=== PATIENT | male | born 1945 | race Caucasian/White ===

== ENCOUNTER → 2018-09-17 12:02 | Outpatient (CLI) | payer OTHER, SELFPAY ==
[2018-09-17 12:55] LABS: BUN Creatinine Ratio 28.6 (6-22); Blood Urea Nitrogen 60 mg/dL (9-20); Calcium 9.2 mg/dL (8.4-10.2); Carbon Dioxide 33 mmol/L (22-32); Chloride 100 mmol/L (98-107); Glucose 95 mg/dL (80-110); HEMOLYSIS < 15 (0-50); Potassium 3.7 mmol/L (3.4-5.1); Sodium 140 mmol/L (137-145)
[2018-09-17 13:10] LABS: Free T4, Direct Thyroxine 2.86 ng/dL (0.78-2.19)
[2018-09-17 13:24] LABS: Thyroid Stimulating Hormone < 0.02 uIU/mL (0.47-4.68)
== END ==
PROVIDERS: PCP Internal Medicine; Visit Provider Internal Medicine
DX: E03.9 Hypothyroidism, unspecified (principal); I10 Essential (primary) hypertension; I48.91 Unspecified atrial fibrillation; N18.4 Chronic kidney disease, stage 4 (severe)
CPT/HCPCS: 36415; 80048; 84439; 84443

== ENCOUNTER → 2018-10-08 09:04 | Outpatient (CLI) | payer OTHER, SELFPAY ==
--- NOTE | 2018-10-08 09:07 | DI.US.S_ITS ---
PROCEDURE: US RETRO PERITONEAL LIMITED INDICATIONS: AAA TECHNIQUE: Real time scanning was performed of the aorta and iliac arteries, with image documentation. COMPARISON: None. FINDINGS: Aorta: Proximal aortic diameter measures 2.9 cm. Mid-aorta measures 3.5 cm. Distal aortic diameter is 7.1 cm. the [id number] abdominal aortic aneurysm has significantly enlarged from the comparison study in November of 2015. Iliac arteries: Right common iliac artery measures 1.4 cm. Left common iliac artery measures 1.3 cm. IMPRESSION: Appreciable interval enlargement of the previously present aneurysm at the middle third and distal third of the aorta. The enlargement is significant, with the distal aorta showing the largest change from 4.5 cm previously to 7.1 cm in maximal axial dimension currently. The middle third of the abdominal aorta currently measures 3.5 cm in maximal axial dimension and in November of 2015 had measured 2.7 cm. Given the current diameter of the distal aorta at 7.1 cm consultation for consideration of intervention is recommended. Dictated by: Nate Roth M.D. on 10/08/2018 at 10:33 Approved by: Nate Roth M.D. on 10/08/2018 at 10:38
== END ==
PROVIDERS: PCP Internal Medicine; Visit Provider Internal Medicine
DX: I71.4 Abdominal aortic aneurysm, without rupture (principal)
CPT/HCPCS: 76775

== ENCOUNTER → 2018-10-23 11:14 | Outpatient (CLI) | payer OTHER, SELFPAY ==
[2018-10-23 12:54] LABS: Albumin 3.6 g/dL (3.5-5.0); BUN Creatinine Ratio 26.2 (6-22); Blood Urea Nitrogen 55 mg/dL (9-20); Calcium 9.1 mg/dL (8.4-10.2); Carbon Dioxide 35 mmol/L (22-32); Chloride 98 mmol/L (98-107); Glucose 137 mg/dL (80-110); HEMOLYSIS < 15 (0-50); Phosphorous 3.4 mg/dL (2.3-3.7); Potassium 3.3 mmol/L (3.4-5.1); Sodium 139 mmol/L (137-145)
== END ==
PROVIDERS: PCP Internal Medicine; Visit Provider Surgery Vascular Surgery
DX: I71.4 Abdominal aortic aneurysm, without rupture (principal)
CPT/HCPCS: 36415; 80069

== ENCOUNTER → 2018-10-29 15:58 | Outpatient (CLI) | payer OTHER, SELFPAY ==
--- NOTE | 2018-10-29 16:01 | DI.ECHO.S_ITS ---
[facility]---------+ [facility] +---------+ : : [address] : : : : [place] : : : : [id number] : : : : Phone: [phone]+ Echocardiogram Report + + :Name: NANCY NICHOLAS Study Date: 10/29/2018 Height: 69 in : :[facility] Exam Location: [facility] Weight: 121 lb : : Gender: Male BSA: 1.7 m2 : :: 1945 Age: 72 yrs BP: 110/80 mmHg: :Reason For Study: Cardiomyopathy : :Ordering Physician: Dr. Grider : :Lester Performed By: Love Page : + + Interpretation Summary The left ventricle is severely dilated. The ejection fraction is estimated to be 10-15%. There is severe global hypokinesis of the left ventricle. The basal inferior and inferolateral yi are thin and akinetic, consistent with prior infarct. The contractility is best in the apex, anteroseptal and anterior apical wall. The right ventricle is mild to moderately dilated. Right ventricular systolic function is moderate to severely reduced. Both atria are severely dilated. A patent foramen ovale is suspected. -Overall this echo shows evidence of significant biventricular dysfunction. The regional wall abnormalities of the left ventricle are concerning for multivessel coronary disease. -Patient was in atrial fibrillation during the study, with heart rate ranging from 65-92 bpm and up to 2 second pauses were noted on the study. -No prior echo in our system for comparison. Procedure: A two-dimensional transthoracic echocardiogram with color flow and Doppler was performed. The study quality was technically good. There is no prior echocardiogram noted for this patient. The patient was in atrial fibrillation with heart rates between 65-92 bpm during the exam. Left Ventricle: The left ventricle is severely dilated. There is normal left ventricular wall thickness. There is no thrombus. The ejection fraction is estimated to be 10-15%. There is severe global hypokinesis of the left ventricle. The basal inferior and inferolateral yi are thin and akinetic, consistent with prior infarct. Diastolic function could not be accurately assessed due to atrial fibrillation. Right Ventricle: The right ventricle is mild to moderately dilated. Right ventricular systolic function is moderate to severely reduced. Atria: Both atria are severely dilated. A patent foramen ovale is suspected. Mitral Valve: The mitral valve is normal in structure and function. There is trace mitral regurgitation. Aortic Valve: The aortic valve is trileaflet. The aortic valve opens well. There is discrete nodular thickening of the non- coronary cusp. There is trace aortic regurgitation. Tricuspid Valve: The tricuspid valve is normal in structure and function. There is trace tricuspid regurgitation. The right ventricular systolic pressure is estimated to be at least 28 mmHg based on an estimated right atrial pressure of 8 mm Hg. Pulmonic Valve: The pulmonic valve is not well visualized. There is mild to moderate pulmonic regurgitation. Great Vessels: The aortic root is normal size. The ascending aorta is at the upper limits of normal in size. The pulmonary is not well visualized. The IVC is of normal diameter and collapses less than 50% with a sniff. This suggests a right atrial pressure of 8 mm Hg. Pericardium/ Pleura There is no pericardial effusion. There is no pleural effusion. MMode/2D Measurements & Calculations LVIDd: 5.7 cm LVOT diam: 2.0 cm LVIDs: 4.8 cm Ao root diam: 3.7 cm FS: 15.3 % asc Aorta Diam: 3.4 cm EPSS: 1.7 cm IVSd: 0.87 cm LVPWd: 0.66 cm LV lemus. diameter/BSA (cm/m^2): 3.4 LV sys. diameter/BSA (cm/m^2): 2.9 LA A2 area: 34.5 cm2 RA long axis: 6.2 cm LA A4 area: 30.7 cm2 RA area: 29.0 cm2 LA length (vol): 6.6 cm RA vol: 115.0 ml LA vol: 136.2 ml RA : 68.9 ml/m2 LA vol index: 81.6 ml/m2 IVC diam: 2.0 cm RVD1 (basal): 4.7 cm RVD2 (mid): 3.3 cm Doppler Measurements & Calculations Ao V2 max: 98.7 cm/sec LVOT Max Bairon: 64.7 cm/sec Ao V2 mean: 72.0 cm/sec LV V1 max P.7 mmHg Ao max P.9 mmHg LV V1 VTI: 9.7 cm Ao mean P.2 mmHg TAWANDA(I,D): 1.9 cm2 Ao V2 VTI: 16.5 cm TAWANDA(V,D): 2.1 cm2 sev ratio: 0.59 TAWANDA indexed to BSA (cm^2/m^2): 1.1 MV E max bairon: 47.3 cm/sec TR max bairon: 225.6 cm/sec MV P1/2t: 71.6 msec TR max P.4 mmHg PA V2 max: 54.1 cm/sec PA V2 mean: 39.0 cm/sec PA mean P.67 mmHg PA Accel Time: 0.11 sec MV P1/2t max bairon: 47.5 cm/sec SV(LVOT): 30.9 ml MVA(P1/2t): 3.1 cm2 Electronically signed by: Arben Monreal M.D. on Reading Physician:10/29/2018 05:56 PM
== END ==
PROVIDERS: PCP Internal Medicine; Visit Provider Internal Medicine
DX: I37.1 Nonrheumatic pulmonary valve insufficiency (principal); I42.9 Cardiomyopathy, unspecified
CPT/HCPCS: 93306

== ENCOUNTER → 2018-11-23 11:30 | Outpatient (CLI) | payer OTHER, SELFPAY ==
[2018-11-23 12:23] LABS: BUN Creatinine Ratio 21.6 (6-22); Blood Urea Nitrogen 54 mg/dL (9-20); Calcium 9.5 mg/dL (8.4-10.2); Carbon Dioxide 31 mmol/L (22-32); Chloride 103 mmol/L (98-107); Estimated Glomerular Filt Rate 25.4 mL/min (>60); Glucose 144 mg/dL (80-110); HEMOLYSIS < 15 (0-50); Potassium 3.9 mmol/L (3.4-5.1); Sodium 143 mmol/L (137-145)
[2018-11-23 12:38] LABS: Free T4, Direct Thyroxine 1.39 ng/dL (0.78-2.19)
[2018-11-23 12:52] LABS: Thyroid Stimulating Hormone 2.66 uIU/mL (0.47-4.68)
== END ==
PROVIDERS: Family Provider Internal Medicine; PCP Internal Medicine; Visit Provider Internal Medicine Cardiovascular Disease
DX: I48.20 Chronic atrial fibrillation, unspecified (principal); E03.9 Hypothyroidism, unspecified; I10 Essential (primary) hypertension
CPT/HCPCS: 36415; 80048; 84439; 84443

== ENCOUNTER → 2019-01-25 14:51 | Outpatient (CLI) | payer OTHER, SELFPAY ==
--- NOTE | 2019-01-25 14:52 | DI.RAD.S_ITS ---
PROCEDURE: XR CHEST 2V INDICATIONS: cough TECHNIQUE: 2 views of the chest were acquired. COMPARISON: None. FINDINGS: Surgical changes and devices: None. Lungs and pleura: Scattered subsegmental atelectasis and/or scarring. No focal consolidation. No pleural effusions or pneumothorax. Lungs appear hyperinflated Mediastinum: Mediastinal contours are normal. Heart size is normal. Bones and chest wall: No suspicious bony abnormalities. Soft tissues appear unremarkable. IMPRESSION: No acute disease. Hyperinflated lungs in keeping with chronic obstructive physiology. Dictated by: Sourav Ny M.D. on 01/25/2019 at 16:56 Approved by: Sourav Ny M.D. on 01/25/2019 at 16:57
[2019-01-25 15:15] LABS: Add Manual Diff / Slide Review NO; Basophils Absolute Auto 100 /uL (0-100); Basophils Percent Auto 1.3 % (0-2); Eosinophils Absolute Auto 200 /uL (0-450); Eosinophils Percent Auto 2.7 % (2-4); Hematocrit 40.6 % (41-53); Lymphocytes Absolute Auto 1500 /uL (1100-4500); Lymphocytes Percent Auto 24.2 % (25-40); Mean Corpuscular HGB Conc 34.5 % (30-36); Mean Corpuscular Hemoglobin 32.6 PG (26-34); Mean Corpuscular Volume 94.4 fL (80-100); Monocytes Absolute Auto 600 /uL (0-900); Monocytes Percent Auto 9.4 % (3-14); Neutrophils Absolute Auto 3900 /uL (1500-7000); Neutrophils Percent Auto 62.4 % (50-75); Platelet Count 151 X10^3/uL (150-400); Red Cell Distribution Width 14.8 % (11.6-14.8); White Blood Cell Count 6.2 X10^3/uL (4.5-11.0)
[2019-01-25 15:52] LABS: Alanine Aminotransferase 23 IU/L (<50); Albumin Globulin Ratio 1.3 (1.0-2.8); Alkaline Phosphatase 87 U/L (38-126); Aspartate Aminotransferase 31 IU/L (17-59); BUN Creatinine Ratio 22.9 (6-22); Bilirubin Total 0.7 mg/dL (0.2-1.3); Blood Urea Nitrogen 55 mg/dL (9-20); C-Reactive Protein Quant 0.6 mg/dL (<1.0); Calcium 9.6 mg/dL (8.4-10.2); Carbon Dioxide 33 mmol/L (22-32); Chloride 101 mmol/L (98-107); Estimated Glomerular Filt Rate 26.5 mL/min (>60); Globulin 3.2 g/dL (1.7-4.1); Glucose 103 mg/dL (80-110); HEMOLYSIS < 15 (0-50); Potassium 3.5 mmol/L (3.4-5.1); Sodium 142 mmol/L (137-145); Total Protein 7.2 g/dL (6.3-8.2)
[2019-01-25 16:06] LABS: Free T4, Direct Thyroxine 1.34 ng/dL (0.78-2.19)
== END ==
PROVIDERS: PCP Internal Medicine; Visit Provider Internal Medicine
DX: R05 Cough (principal); F32.9 Major depressive disorder, single episode, unspecified; I42.9 Cardiomyopathy, unspecified; I48.91 Unspecified atrial fibrillation; I69.30 Unspecified sequelae of cerebral infarction; N18.4 Chronic kidney disease, stage 4 (severe)
CPT/HCPCS: 36415; 71046; 80053; 84439; 84443; 85025; 86140

== ENCOUNTER → 2019-03-09 14:29 | Outpatient (CLI) | payer OTHER, SELFPAY ==
[2019-03-09 15:40] LABS: INR 1.7 (0.9-1.3); Prothrombin Time 20.2 SECONDS (10.1-12.7)
[2019-03-09 17:12] LABS: BUN Creatinine Ratio 22.2 (6-22); Blood Urea Nitrogen 51 mg/dL (9-20); Calcium 9.4 mg/dL (8.4-10.2); Carbon Dioxide 31 mmol/L (22-32); Chloride 99 mmol/L (98-107); Estimated Glomerular Filt Rate 27.9 mL/min (>60); Glucose 69 mg/dL (80-110); HEMOLYSIS < 15 (0-50); Potassium 3.6 mmol/L (3.4-5.1); Sodium 140 mmol/L (137-145)
== END ==
PROVIDERS: PCP Internal Medicine; Visit Provider Internal Medicine Cardiovascular Disease
DX: I25.5 Ischemic cardiomyopathy (principal); I48.20 Chronic atrial fibrillation, unspecified; I48.91 Unspecified atrial fibrillation; I69.30 Unspecified sequelae of cerebral infarction
CPT/HCPCS: 36415; 80048; 85610

== ENCOUNTER → 2019-04-19 15:00 | Outpatient (CLI) | payer OTHER, SELFPAY ==
--- NOTE | 2019-04-19 | DI.US.S_ITS ---
PROCEDURE: US RENAL COMPLETE INDICATIONS: CKD STAGE 4 TECHNIQUE: Real-time scanning was performed of the kidneys and bladder, with image documentation. COMPARISON: None. FINDINGS: Kidneys: Kidneys are normal in size. Right kidney measures 9.7 cm long; left kidney measures 10.6 cm long. Right renal cortical thickness is 1.2 cm; left renal cortical thickness is 1.7 cm. diffusely increased bilateral renal parenchymal echotexture is seen consistent with patient's history of chronic kidney disease. Multiple small right renal cysts are seen and measures up to 1.5 x 1.3 x 1.5 cm in size in lower pole of right kidney. Multiple left renal cysts are also noted and measures up to 2.6 x 2.6 x 2.8 cm in size. No suspicious solid mass lesions. There is no hydronephrosis. No gross nephrolithiasis. Bladder: Pre-void bladder volume is 39 mL. Post-void residual is new 0 mL. Pre-void images demonstrate no intraluminal masses or stones. Miscellaneous: No free pelvic fluid. IMPRESSION: 1. Bilateral renal cysts. No gross solid-appearing renal lesion. No hydronephrosis. 2. Increased renal parenchymal echotexture, consistent with patient's history of renal disease. Dictated by: Shar Lincoln M.D. on 04/19/2019 at 16:48 Approved by: Shar Lincoln M.D. on 04/19/2019 at 16:50
== END ==
PROVIDERS: PCP Internal Medicine; Referring Provider Student in an Organized Health Care Education/Training Program; Visit Provider Student in an Organized Health Care Education/Training Program
DX: N18.4 Chronic kidney disease, stage 4 (severe) (principal); N28.1 Cyst of kidney, acquired
CPT/HCPCS: 76770

== ENCOUNTER → 2019-07-05 13:12 | Outpatient (CLI) | payer OTHER, SELFPAY ==
[2019-07-05 13:34] LABS: Bacteria Urine None Seen
[2019-07-05 14:16] LABS: Hematocrit 39.7 % (41-53); Hemoglobin 13.9 g/dL (13.5-17.5)
[2019-07-05 14:24] LABS: Prothrombin Time 22.6 SECONDS (10.1-12.7)
[2019-07-05 14:32] LABS: BUN Creatinine Ratio 22.5 (6-22); Blood Urea Nitrogen 63 mg/dL (9-20); Calcium 9.6 mg/dL (8.4-10.2); Carbon Dioxide 34 mmol/L (22-32); Chloride 101 mmol/L (98-107); Estimated Glomerular Filt Rate 22.2 mL/min (>60); Glucose 159 mg/dL (80-110); HEMOLYSIS < 15 (0-50); Phosphorous 4.3 mg/dL (2.3-3.7); Potassium 3.9 mmol/L (3.4-5.1); Sodium 145 mmol/L (137-145)
[2019-07-05 16:36] LABS: Appearance Urine UA CLEAR; Bilirubin Urine UA NEGATIVE (NEGATIVE); Color Urine UA YELLOW; Glucose Urine UA NEGATIVE (Negative); Ketones Urine UA NEGATIVE (NEGATIVE); Leukocyte Esterase Urine UA NEGATIVE (NEGATIVE); Nitrite Urine UA NEGATIVE (Negative); Occult Blood Urine UA 3+ (Negative); Protein Urine UA TRACE (Negative); Specific Gravity Urine UA 1.015 (1.000-1.035); Urobilinogen Urine UA 0.2 E.U./dL (0.2)
[2019-07-05 16:48] LABS: RBC Urine 30-100/HPF (0-5/HPF)
[2019-07-05 16:49] LABS: Culture Indicated Urine Cult Not Indicated; Squamous Epithelial Cell Urine 0-1 /HPF (0-5/HPF); WBC Urine 0-1/HPF (0-5/HPF)
[2019-07-05 17:06] LABS: Creatinine Urine Random 111.4 mg/dL; Protein (Total) Urine Random 36 mg/dL (0-12); Protein Creatinine Ratio Urine 0.32 GRAM/24H
[2019-07-06 08:19] LABS: Parathyroid Hormone Int 119 pg/mL (15-65)
== END ==
PROVIDERS: PCP Internal Medicine; Referring Provider Internal Medicine; Visit Provider Student in an Organized Health Care Education/Training Program
DX: N05.9 Unspecified nephritic syndrome with unspecified morphologic changes (principal); D64.9 Anemia, unspecified; E83.30 Disorder of phosphorus metabolism, unspecified; N25.81 Secondary hyperparathyroidism of renal origin; N30.00 Acute cystitis without hematuria; R80.9 Proteinuria, unspecified
CPT/HCPCS: 36415; 80048; 81001; 82570; 83970; 84100; 84156; 85014; 85018; 85610

== ENCOUNTER → 2019-08-10 14:37 | Outpatient (CLI) | payer OTHER, SELFPAY ==
[2019-08-10 15:26] LABS: Bacteria Urine None Seen
[2019-08-10 17:10] LABS: Creatinine Urine Random 122.3 mg/dL; Protein (Total) Urine Random 34 mg/dL (0-12); Protein Creatinine Ratio Urine 0.27 GRAM/24H
[2019-08-10 17:24] LABS: BUN Creatinine Ratio 20.7 (6-22); Blood Urea Nitrogen 51 mg/dL (9-20); Calcium 8.7 mg/dL (8.4-10.2); Carbon Dioxide 27 mmol/L (22-32); Chloride 105 mmol/L (98-107); Estimated Glomerular Filt Rate 25.8 mL/min (>60); Glucose 76 mg/dL (80-110); HEMOLYSIS < 15 (0-50); Potassium 3.7 mmol/L (3.4-5.1); Sodium 139 mmol/L (137-145)
[2019-08-10 17:30] LABS: Appearance Urine UA CLEAR; Bilirubin Urine UA NEGATIVE (NEGATIVE); Color Urine UA YELLOW; Glucose Urine UA NEGATIVE (Negative); Ketones Urine UA NEGATIVE (NEGATIVE); Leukocyte Esterase Urine UA NEGATIVE (NEGATIVE); Nitrite Urine UA NEGATIVE (Negative); Occult Blood Urine UA 3+ (Negative); Protein Urine UA TRACE (Negative); Urobilinogen Urine UA 0.2 E.U./dL (0.2)
[2019-08-10 17:31] LABS: Culture Indicated Urine Cult Not Indicated; RBC Urine 30-100/HPF (0-5/HPF); Squamous Epithelial Cell Urine 0-1 /HPF (0-5/HPF); WBC Urine 0-1/HPF (0-5/HPF)
[2019-08-11 10:28] LABS: Complement C3 59 mg/dL (82-167); Parathyroid Hormone Int 86 pg/mL (15-65)
[2019-08-11 17:40] LABS: DNA (DS) Antibody <1 IU/mL (0-9)
[2019-08-12 13:09] LABS: Cytoplasmic C-ANCA <1:20 titer (Neg:<1:20); Perinuclear P-ANCA <1:20 titer (Neg:<1:20)
[2019-08-12 14:12] LABS: ANA Screen, IFA Negative (.)
== END ==
PROVIDERS: PCP Internal Medicine; Referring Provider Student in an Organized Health Care Education/Training Program; Visit Provider Student in an Organized Health Care Education/Training Program
DX: L93.2 Other local lupus erythematosus (principal); M31.30 Wegener's granulomatosis without renal involvement; M32.10 Systemic lupus erythematosus, organ or system involvement unspecified; N00.9 Acute nephritic syndrome with unspecified morphologic changes; N05.9 Unspecified nephritic syndrome with unspecified morphologic changes; D89.89 Other specified disorders involving the immune mechanism, not elsewhere classified; N25.81 Secondary hyperparathyroidism of renal origin; N30.00 Acute cystitis without hematuria; R80.9 Proteinuria, unspecified
CPT/HCPCS: 36415; 80048; 81001; 82570; 83516; 83970; 84156; 86038; 86160; 86225

== ENCOUNTER → 2019-12-14 15:42 | Outpatient (CLI) | payer OTHER, SELFPAY ==
[2019-12-14 16:27] LABS: Bacteria Urine None Seen
[2019-12-14 18:09] LABS: BUN Creatinine Ratio 21.3 (6-22); Blood Urea Nitrogen 51 mg/dL (9-20); Calcium 8.9 mg/dL (8.4-10.2); Carbon Dioxide 38 mmol/L (22-32); Chloride 101 mmol/L (98-107); Estimated Glomerular Filt Rate 26.5 mL/min (>60); Glucose 83 mg/dL (80-110); HEMOLYSIS < 15 (0-50); Potassium 3.6 mmol/L (3.4-5.1); Sodium 139 mmol/L (137-145)
[2019-12-14 18:35] LABS: Appearance Urine UA CLEAR; Bilirubin Urine UA NEGATIVE (NEGATIVE); Color Urine UA YELLOW; Glucose Urine UA NEGATIVE (Negative); Ketones Urine UA NEGATIVE (NEGATIVE); Leukocyte Esterase Urine UA NEGATIVE (NEGATIVE); Nitrite Urine UA NEGATIVE (Negative); Occult Blood Urine UA 3+ (Negative); Protein Urine UA 1+ (Negative); Specific Gravity Urine UA 1.015 (1.000-1.035); Urobilinogen Urine UA 0.2 E.U./dL (0.2)
[2019-12-14 18:43] LABS: Culture Indicated Urine Cult Not Indicated; RBC Urine 10-30/HPF (0-5/HPF); WBC Urine 0-1/HPF (0-5/HPF)
[2019-12-14 18:49] LABS: Creatinine Urine Random 87.2 mg/dL; Protein (Total) Urine Random 41 mg/dL (0-12); Protein Creatinine Ratio Urine 0.47 GRAM/24H
[2019-12-16 07:21] LABS: Parathyroid Hormone Int 79 pg/mL (15-65)
== END ==
PROVIDERS: PCP Internal Medicine; Referring Provider Student in an Organized Health Care Education/Training Program; Visit Provider Student in an Organized Health Care Education/Training Program
DX: N05.9 Unspecified nephritic syndrome with unspecified morphologic changes (principal); N25.81 Secondary hyperparathyroidism of renal origin; N30.00 Acute cystitis without hematuria; R80.9 Proteinuria, unspecified
CPT/HCPCS: 36415; 80048; 81001; 82570; 83970; 84156

== ENCOUNTER → 2020-06-01 15:45 | Outpatient (CLI) | payer OTHER, SELFPAY ==
[2020-06-01 16:22] LABS: Hematocrit 36.8 % (41-53); Hemoglobin 12.5 g/dL (13.5-17.5)
[2020-06-01 16:38] LABS: BUN Creatinine Ratio 23.5 (6-22); Blood Urea Nitrogen 55 mg/dL (9-20); Calcium 8.9 mg/dL (8.4-10.2); Carbon Dioxide 31 mmol/L (22-32); Chloride 104 mmol/L (98-107); Estimated Glomerular Filt Rate 27.2 mL/min (>60); Glucose 82 mg/dL (80-110); HEMOLYSIS < 15 (0-50); Potassium 3.6 mmol/L (3.4-5.1); Sodium 140 mmol/L (137-145)
[2020-06-01 17:38] LABS: Protein (Total) Urine Random 54 mg/dL (0-12); Protein Creatinine Ratio Urine 0.68 GRAM/24H
[2020-06-02 08:10] LABS: Parathyroid Hormone Int 141 pg/mL (15-65)
== END ==
PROVIDERS: PCP Internal Medicine; Referring Provider Student in an Organized Health Care Education/Training Program; Visit Provider Student in an Organized Health Care Education/Training Program
DX: N05.9 Unspecified nephritic syndrome with unspecified morphologic changes (principal); D64.9 Anemia, unspecified; R80.9 Proteinuria, unspecified; N25.81 Secondary hyperparathyroidism of renal origin
CPT/HCPCS: 36415; 80048; 82570; 83970; 84156; 85014; 85018

== ENCOUNTER → 2020-07-13 11:26 | Outpatient (CLI) | payer OTHER, SELFPAY ==
[2020-07-13 12:18] LABS: Hematocrit 38.2 % (41-53); Mean Corpuscular HGB Conc 33.9 % (30-36); Mean Corpuscular Hemoglobin 32.1 PG (26-34); Mean Corpuscular Volume 94.6 fL (80-100); Platelet Count 174 X10^3/uL (150-400); Red Blood Cell Count 4.04 X10^6/uL (4.5-5.9); Red Cell Distribution Width 14.6 % (11.6-14.8); White Blood Cell Count 6.2 X10^3/uL (4.5-11.0)
[2020-07-13 12:58] LABS: Alanine Aminotransferase 15 IU/L (<50); Albumin 3.9 g/dL (3.5-5.0); Albumin Globulin Ratio 1.3 (1.0-2.8); Alkaline Phosphatase 78 U/L (38-126); Aspartate Aminotransferase 24 IU/L (17-59); Bilirubin Total 0.6 mg/dL (0.2-1.3); Blood Urea Nitrogen 60 mg/dL (9-20); Carbon Dioxide 32 mmol/L (22-32); Chloride 100 mmol/L (98-107); Estimated Glomerular Filt Rate 20.4 mL/min (>60); Glucose 96 mg/dL (80-110); HEMOLYSIS 20 (0-50); Sodium 139 mmol/L (137-145); Total Protein 6.9 g/dL (6.3-8.2)
[2020-07-13 13:13] LABS: Free T4, Direct Thyroxine 1.63 ng/dL (0.78-2.19)
== END ==
PROVIDERS: PCP Internal Medicine; Referring Provider Internal Medicine; Visit Provider Internal Medicine
DX: E03.9 Hypothyroidism, unspecified (principal); I10 Essential (primary) hypertension; N18.4 Chronic kidney disease, stage 4 (severe); Z79.01 Long term (current) use of anticoagulants
CPT/HCPCS: 36415; 80053; 84439; 84443; 85027

== ENCOUNTER → 2020-07-14 14:44 | Outpatient (CLI) | payer OTHER, SELFPAY ==
--- NOTE | 2020-07-14 14:45 | DI.ECHO.S_ITS ---
[facility]---------+ [facility] +---------+ : : [address] : : [place] : : : : [id number] : : : : Phone: [phone]+ Echocardiogram Report + + :Name: NANCY NICHOLAS Study Date: 07/14/2020 Height: 72 in : :[facility] ReadingLocation: Weight: 127 lb : : Gender: Male BSA: 1.8 m2 : :: 1945 Age: 74 yrs BP: 134/95 mmHg: :Reason For Study: Cardiomyopathy, Ischemic : :Ordering Physician: GIOVANNI, : :ABILIO Miramontes Performed By: Aamir Lua : :Referring: ABILIO DAVILA : + + Interpretation Summary The left ventricle is moderately dilated. Left ventricular systolic function is severely reduced. The ejection fraction is estimated to be 15-20%.There is severe global hypokinesis of the left ventricle. The basal inferior and inferolateral yi are thin and akinetic, consistent with prior infarct. Diastolic function could not be accurately assessed due to atrial fibrillation. The right ventricle is mildly dilated. Right ventricular systolic function is mild to moderately reduced. The right ventricular systolic pressure is estimated to be at least 22 mmHg based on an estimated right atrial pressure of 3 mm Hg. The left atrium is severely dilated. The right atrium is moderately dilated. There is no significant valvular heart disease. The aortic root is normal size. Procedure: A two-dimensional transthoracic echocardiogram with color flow and Doppler was performed. The study quality was technically adequate. Comparison is made with the echocardiogram of 10/29/2018. Left Ventricle: The left ventricle is moderately dilated. Left ventricular systolic function is severely reduced. The ejection fraction is estimated to be 15-20%. There is severe global hypokinesis of the left ventricle. Diastolic function could not be accurately assessed due to atrial fibrillation. Right Ventricle: The right ventricle is mildly dilated. Right ventricular systolic function is mild to moderately reduced. Atria: The left atrium is severely dilated. The right atrium is moderately dilated. There is no Doppler evidence for an interatrial shunt. Mitral Valve: There is trace mitral regurgitation. Aortic Valve: There is mild aortic valve sclerosis. No aortic regurgitation is present. Tricuspid Valve: The tricuspid valve is normal in structure and function. There is a trace or physiologic amount of tricuspid regurgitation. The right ventricular systolic pressure is estimated to be at least 22 mmHg based on an estimated right atrial pressure of 3 mm Hg. Pulmonic Valve: The pulmonic valve is not well seen, but is grossly normal. There is a trace or physiologic amount of pulmonic regurgitation. There is no significant valvular heart disease. Great Vessels: The aortic root is normal size. The dimensions of the ascending aorta are normal. The IVC is of normal diameter and collapses greater than 50% with a sniff. This suggests a low right atrial pressure of 3 mm Hg. Pericardium/ Pleura There is no pericardial effusion. There is no pleural effusion. MMode/2D Measurements & Calculations LVIDd: 6.6 cm LVOT diam: 2.3 cm LVIDs: 6.3 cm Ao root diam: 3.4 cm FS: 4.4 % asc Aorta Diam: 3.2 cm IVSd: 0.87 cm LVPWd: 0.51 cm LV lemus. diameter/BSA (cm/m^2): 3.7 LV sys. diameter/BSA (cm/m^2): 3.6 LA A2 area: 36.8 cm2 RA long axis: 5.9 cm LA A4 area: 23.1 cm2 RA area: 24.1 cm2 LA length (vol): 5.7 cm RA vol: 83.8 ml LA vol: 127.4 ml RA : 47.7 ml/m2 LA vol index: 72.5 ml/m2 IVC diam: 1.9 cm RVD1 (basal): 4.8 cm TAPSE: 1.5 cm Doppler Measurements & Calculations Ao V2 max: 99.1 cm/sec LVOT Max Bairon: 53.2 cm/sec Ao V2 mean: 72.1 cm/sec LV V1 max P.1 mmHg Ao max P.9 mmHg LV V1 VTI: 7.2 cm Ao mean P.3 mmHg TAWANDA(I,D): 2.1 cm2 Ao V2 VTI: 14.4 cm TAWANDA(V,D): 2.2 cm2 sev ratio: 0.50 TAWANDA indexed to BSA (cm^2/m^2): 1.2 TR max bairon: 219.5 cm/sec SV(LVOT): 29.7 ml TR max P.3 mmHg PA pr(Accel): 42.2 mmHg Reading Physician:06:02 PM
== END ==
PROVIDERS: PCP Internal Medicine; Referring Provider Internal Medicine; Visit Provider Internal Medicine
DX: I35.8 Other nonrheumatic aortic valve disorders (principal); I25.5 Ischemic cardiomyopathy
CPT/HCPCS: 93306

== ENCOUNTER → 2020-08-15 13:34 | Outpatient (CLI) | payer OTHER, SELFPAY ==
[2020-08-15 14:31] LABS: Hematocrit 36.6 % (41-53); Hemoglobin 12.3 g/dL (13.5-17.5)
[2020-08-15 14:51] LABS: BUN Creatinine Ratio 15.4 (6-22); Blood Urea Nitrogen 47 mg/dL (9-20); Calcium 9.9 mg/dL (8.4-10.2); Carbon Dioxide 34 mmol/L (22-32); Chloride 101 mmol/L (98-107); Glucose 98 mg/dL (80-110); HEMOLYSIS < 15 (0-50); Potassium 3.5 mmol/L (3.4-5.1); Sodium 139 mmol/L (137-145)
[2020-08-15 16:17] LABS: Creatinine Urine Random 127.9 mg/dL; Protein (Total) Urine Random 50 mg/dL (0-12); Protein Creatinine Ratio Urine 0.39 GRAM/24H
[2020-08-16 06:37] LABS: Parathyroid Hormone Int 29 pg/mL (15-65)
== END ==
PROVIDERS: PCP Internal Medicine; Referring Provider Student in an Organized Health Care Education/Training Program; Visit Provider Student in an Organized Health Care Education/Training Program
DX: N05.9 Unspecified nephritic syndrome with unspecified morphologic changes (principal); D64.9 Anemia, unspecified; N25.81 Secondary hyperparathyroidism of renal origin; R80.9 Proteinuria, unspecified; I10 Essential (primary) hypertension; N18.4 Chronic kidney disease, stage 4 (severe)
CPT/HCPCS: 36415; 80048; 82570; 83970; 84156; 85014; 85018

== ENCOUNTER → 2020-09-25 11:36 | Outpatient (CLI) | payer OTHER, SELFPAY ==
[2020-09-25 14:25] LABS: Cholesterol 130 mg/dL (140-199); HDL Cholesterol 69 mg/dL (40-60); LDL Cholesterol Calculated 48 mg/dL (<100); Triglycerides 65 mg/dL (35-150)
== END ==
PROVIDERS: PCP Internal Medicine; Referring Provider Internal Medicine Cardiovascular Disease; Visit Provider Internal Medicine Cardiovascular Disease
DX: I48.20 Chronic atrial fibrillation, unspecified (principal)
CPT/HCPCS: 36415; 80061

== ENCOUNTER → 2020-10-03 16:04 | Outpatient (CLI) | payer OTHER, SELFPAY ==
[2020-10-03 17:45] LABS: BUN Creatinine Ratio 15.8 (6-22); Blood Urea Nitrogen 46 mg/dL (9-20); Calcium 10.1 mg/dL (8.4-10.2); Carbon Dioxide 31 mmol/L (22-32); Chloride 104 mmol/L (98-107); Estimated Glomerular Filt Rate 21.2 mL/min (>60); Glucose 114 mg/dL (80-110); HEMOLYSIS < 15 (0-50); Potassium 3.9 mmol/L (3.4-5.1); Sodium 141 mmol/L (137-145)
== END ==
PROVIDERS: PCP Internal Medicine; Referring Provider Internal Medicine; Visit Provider Internal Medicine
DX: N18.4 Chronic kidney disease, stage 4 (severe) (principal)
CPT/HCPCS: 36415; 80048

== ENCOUNTER → 2020-11-23 15:40 | Outpatient (CLI) | payer OTHER, SELFPAY ==
[2020-11-23 16:59] LABS: Hematocrit 37.5 % (41-53); Hemoglobin 12.6 g/dL (13.5-17.5)
[2020-11-23 17:35] LABS: Creatinine Urine Random 113.5 mg/dL; Protein (Total) Urine Random 92 mg/dL (0-12); Protein Creatinine Ratio Urine 0.81 GRAM/24H
[2020-11-23 17:36] LABS: BUN Creatinine Ratio 20.1 (6-22); Blood Urea Nitrogen 62 mg/dL (9-20); Calcium 10.3 mg/dL (8.4-10.2); Carbon Dioxide 34 mmol/L (22-32); Chloride 101 mmol/L (98-107); Estimated Glomerular Filt Rate 19.8 mL/min (>60); Glucose 90 mg/dL (80-110); HEMOLYSIS < 15 (0-50); Potassium 3.8 mmol/L (3.4-5.1); Sodium 141 mmol/L (137-145)
[2020-11-24 07:28] LABS: Parathyroid Hormone Int 22 pg/mL (15-65)
== END ==
PROVIDERS: PCP Internal Medicine; Referring Provider Student in an Organized Health Care Education/Training Program; Visit Provider Student in an Organized Health Care Education/Training Program
DX: N05.9 Unspecified nephritic syndrome with unspecified morphologic changes (principal); R80.9 Proteinuria, unspecified; D64.9 Anemia, unspecified; N25.81 Secondary hyperparathyroidism of renal origin
CPT/HCPCS: 36415; 80048; 82570; 83970; 84156; 85014; 85018

== ENCOUNTER → 2021-01-05 16:19 | Outpatient (CLI) | payer MEDICARE, SELFPAY ==
[2021-01-05] MEDS: COVID-19 VACC #3, MRNA(MOD) 50 MCG/0.25 ML VIAL IM (16:40)
== END ==
PROVIDERS: PCP Internal Medicine; Visit Provider Internal Medicine
DX: Z23 Encounter for immunization (principal)
CPT/HCPCS: 0013A; 91301

== ENCOUNTER → 2021-01-26 12:53 | Outpatient (CLI) | payer OTHER, SELFPAY ==
--- NOTE | 2021-01-26 12:57 | DI.RAD.S_ITS ---
PROCEDURE: XR CHEST 2V INDICATIONS: SHORTNESS OF BREATH TECHNIQUE: 2 views of the chest were acquired. COMPARISON: [facility], CR, XR CHEST 2V, 01/25/2019, 14:58. FINDINGS: Surgical changes and devices: None. Lungs and pleura: Lungs are clear. No pleural effusions or pneumothorax. Lungs are hyperexpanded suggestive of COPD. Mediastinum: Mediastinal contours are normal. Heart size is mildly prominent. Bones and chest wall: No suspicious bony abnormalities. Soft tissues appear unremarkable. IMPRESSION: No acute pulmonary process. Dictated by: Estefania Rocha M.D. on 01/26/2021 at 15:43 Approved by: Estefania Rocha M.D. on 01/26/2021 at 15:44
[2021-01-26 13:49] LABS: COVID19 -Nasal RAPID Negative (Negative)
== END ==
PROVIDERS: PCP Internal Medicine; Referring Provider Internal Medicine; Visit Provider Internal Medicine
DX: Z20.822 Contact with and (suspected) exposure to COVID-19 (principal); R06.02 Shortness of breath
CPT/HCPCS: 71046; 87635; C9803

== ENCOUNTER → 2021-01-26 13:19 | Outpatient (CLI) | payer OTHER, SELFPAY | PROVIDERS: PCP Internal Medicine; Referring Provider Internal Medicine; Visit Provider Internal Medicine | DX: R06.02 Shortness of breath (principal); R06.00 Dyspnea, unspecified ==

== ENCOUNTER → 2021-01-26 14:48 | Outpatient (CLI) | payer OTHER, SELFPAY ==
--- NOTE | 2021-01-31 09:50 | P.PFT.S_ITS ---
Pulmonary Function Test Referral & Results Date Patient Seen: 01/26/21 Requesting provider: Cheo Batista Indication: Shortness of breath Results: The spirometry demonstrates an FVC of 2.90 L which is 64% of predicted. The FEV1 was measured at 1.03 L which is 31% of predicted. The FEV1/FVC ratio was 36 which is 49% of predicted. Following the administration of bronchodilator there was a 16% improvement in FE V1 and a 51% improvement in FEF 25-75% Lung volumes show an SVC of 3.30 L which is 69% of predicted. The diffusing capacity was measured at 10.75 which is 30% of predicted. No hemoglobin value was provided, so no correction for potential anemia could be made, if appropriate. The maximum voluntary ventilation was severely reduced Interpretation: This study demonstrates severe obstructive lung disease with FEV1 near 1 L. There is evidence of notable improvement after bronchodilator as above There is also mild restrictive lung disease based on reduction of SVC There is a very severe reduction diffusing capacity suggesting significant disease at the capillary alveolar level to the point where patient may well be hypoxic at times on room air This is all consistent with a diagnosis of severe COPD Clinical correlation suggested
== END ==
PROVIDERS: PCP Internal Medicine; Referring Provider Internal Medicine; Visit Provider Internal Medicine
DX: R06.02 Shortness of breath (principal); F17.200 Nicotine dependence, unspecified, uncomplicated; Z20.822 Contact with and (suspected) exposure to COVID-19; J98.8 Other specified respiratory disorders
CPT/HCPCS: 71046; 87635; 94060; 94726; 94729; C9803

== ENCOUNTER → 2021-02-05 14:30 | Outpatient (CLI) | payer OTHER, SELFPAY ==
[2021-02-05 15:35] LABS: Prothrombin Time 22.9 SECONDS (10.1-12.7)
== END ==
PROVIDERS: PCP Internal Medicine; Referring Provider Internal Medicine; Visit Provider Internal Medicine
DX: Z79.01 Long term (current) use of anticoagulants (principal)
CPT/HCPCS: 36415; 85610

== ENCOUNTER → 2021-02-20 10:57 | Outpatient (CLI) | payer OTHER, SELFPAY ==
[2021-02-20 11:24] LABS: Hematocrit 35.6 % (41-53); Hemoglobin 12.2 g/dL (13.5-17.5); Mean Corpuscular HGB Conc 34.3 % (30-36); Mean Corpuscular Hemoglobin 32.3 PG (26-34); Mean Corpuscular Volume 94.1 fL (80-100); Platelet Count 182 X10^3/uL (150-400); Red Blood Cell Count 3.78 X10^6/uL (4.5-5.9); Red Cell Distribution Width 14.2 % (11.6-14.8)
[2021-02-20 11:47] LABS: BUN Creatinine Ratio 17.1 (6-22); Blood Urea Nitrogen 57 mg/dL (9-20); Calcium 10.3 mg/dL (8.4-10.2); Carbon Dioxide 34 mmol/L (22-32); Chloride 103 mmol/L (98-107); Glucose 92 mg/dL (80-110); HEMOLYSIS < 15 (0-50); Sodium 142 mmol/L (137-145)
[2021-02-21 08:49] LABS: Parathyroid Hormone Int 22 pg/mL (15-65)
== END ==
PROVIDERS: PCP Internal Medicine; Referring Provider Student in an Organized Health Care Education/Training Program; Visit Provider Student in an Organized Health Care Education/Training Program
DX: D64.9 Anemia, unspecified (principal); N05.9 Unspecified nephritic syndrome with unspecified morphologic changes; N25.81 Secondary hyperparathyroidism of renal origin; I10 Essential (primary) hypertension; J44.9 Chronic obstructive pulmonary disease, unspecified; N18.4 Chronic kidney disease, stage 4 (severe)
CPT/HCPCS: 36415; 80048; 83970; 85027

== ENCOUNTER → 2021-03-30 13:01 | Outpatient (CLI) | payer OTHER, SELFPAY ==
[2021-03-30 13:50] LABS: Hematocrit 36.4 % (41-53); Hemoglobin 12.3 g/dL (13.5-17.5)
[2021-03-30 16:07] LABS: BUN Creatinine Ratio 20.7 (6-22); Blood Urea Nitrogen 56 mg/dL (9-20); Calcium 9.2 mg/dL (8.4-10.2); Carbon Dioxide 31 mmol/L (22-32); Chloride 105 mmol/L (98-107); Estimated Glomerular Filt Rate 22.9 mL/min (>60); Glucose 89 mg/dL (80-110); HEMOLYSIS < 15 (0-50); Potassium 3.9 mmol/L (3.4-5.1); Sodium 140 mmol/L (137-145)
[2021-03-31 08:17] LABS: Parathyroid Hormone Int 84 pg/mL (15-65)
== END ==
PROVIDERS: PCP Internal Medicine; Referring Provider Student in an Organized Health Care Education/Training Program; Visit Provider Student in an Organized Health Care Education/Training Program
DX: N05.9 Unspecified nephritic syndrome with unspecified morphologic changes (principal); D64.9 Anemia, unspecified; N25.81 Secondary hyperparathyroidism of renal origin
CPT/HCPCS: 36415; 80048; 83970; 85014; 85018

== ENCOUNTER → 2021-05-10 09:24 | Outpatient (CLI) | payer OTHER, SELFPAY ==
--- NOTE | 2021-05-10 09:26 | DI.RAD.S_ITS ---
PROCEDURE: XR CHEST 2V INDICATIONS: hemoptysis TECHNIQUE: 2 views of the chest were acquired. COMPARISON: [facility], CR, XR CHEST 2V, 01/25/2019, 14:58 on prior exams.. [facility], CR, XR CHEST 2V, 01/26/2021, 14:25. FINDINGS: Surgical changes and devices: None. Lungs and pleura: There is mild appearance of increased interstitial markings. Ill-defined nodular opacity is present within the left base measuring approximately 13 mm. It is not seen Mediastinum: Mediastinal contours are normal. Heart size is enlarged. Bones and chest wall: No suspicious bony abnormalities. Soft tissues appear unremarkable. IMPRESSION: Mild increased interstitial markings possibly related to edema. However, pneumonia cannot be excluded. 13 mm ill-defined nodule overlying the left base. This could be related to nipple shadow. However, pulmonary nodule cannot be excluded. Interval x-ray follow-up with nipple markers or CT chest is recommended. Dictated by: Estefania Rocha M.D. on 05/10/2021 at 13:15 Approved by: Estefania Rocha M.D. on 05/10/2021 at 13:18
[2021-05-10 10:31] LABS: Add Manual Diff / Slide Review NO; Basophils Absolute Auto 100 /uL (0-100); Basophils Percent Auto 1.8 % (0-2); Eosinophils Absolute Auto 200 /uL (0-450); Eosinophils Percent Auto 3.5 % (2-4); Hematocrit 34.8 % (41-53); Lymphocytes Absolute Auto 1700 /uL (1100-4500); Lymphocytes Percent Auto 26.9 % (25-40); Mean Corpuscular HGB Conc 34.3 % (30-36); Mean Corpuscular Hemoglobin 32.3 PG (26-34); Mean Corpuscular Volume 94.2 fL (80-100); Monocytes Absolute Auto 700 /uL (0-900); Monocytes Percent Auto 10.6 % (3-14); Neutrophils Absolute Auto 3500 /uL (1500-7000); Neutrophils Percent Auto 57.2 % (50-75); Platelet Count 176 X10^3/uL (150-400); Red Cell Distribution Width 14.2 % (11.6-14.8); White Blood Cell Count 6.2 X10^3/uL (4.5-11.0)
[2021-05-10 10:41] LABS: Appearance Urine UA CLEAR; Bilirubin Urine UA NEGATIVE (NEGATIVE); Color Urine UA YELLOW; Glucose Urine UA NEGATIVE (Negative); Ketones Urine UA NEGATIVE (NEGATIVE); Leukocyte Esterase Urine UA NEGATIVE (NEGATIVE); Nitrite Urine UA NEGATIVE (Negative); Occult Blood Urine UA 3+ (Negative); Protein Urine UA 2+ (Negative); Urobilinogen Urine UA 0.2 E.U./dL (0.2); pH Urine UA 5.5 (4.5-8.0)
[2021-05-10 10:47] LABS: Alanine Aminotransferase 16 IU/L (<50); Albumin 3.6 g/dL (3.5-5.0); Albumin Globulin Ratio 1.3 (1.0-2.8); Alkaline Phosphatase 70 U/L (38-126); Aspartate Aminotransferase 23 IU/L (17-59); BUN Creatinine Ratio 19.4 (6-22); Bilirubin Total 0.5 mg/dL (0.2-1.3); Blood Urea Nitrogen 55 mg/dL (9-20); C-Reactive Protein Quant < 0.5 mg/dL (<1.0); Calcium 8.8 mg/dL (8.4-10.2); Carbon Dioxide 34 mmol/L (22-32); Chloride 104 mmol/L (98-107); Estimated Glomerular Filt Rate 21.7 mL/min (>60); Globulin 2.7 g/dL (1.7-4.1); Glucose 97 mg/dL (80-110); HEMOLYSIS < 15 (0-50); Sodium 143 mmol/L (137-145); Total Protein 6.3 g/dL (6.3-8.2)
[2021-05-10 10:52] LABS: Erythrocyte Sedimentation Rate 5 MM/HR (0-15)
[2021-05-10 11:00] LABS: Bacteria Urine None Seen; Culture Indicated Urine Cult Not Indicated; RBC Urine 10-30/HPF (0-5/HPF); WBC Urine None Seen (0-5/HPF)
== END ==
PROVIDERS: PCP Internal Medicine; Referring Provider Internal Medicine; Visit Provider Internal Medicine
DX: N18.4 Chronic kidney disease, stage 4 (severe) (principal); I10 Essential (primary) hypertension; J44.9 Chronic obstructive pulmonary disease, unspecified; R04.2 Hemoptysis; R10.31 Right lower quadrant pain
CPT/HCPCS: 36415; 71046; 80053; 81003; 81015; 85025; 85651; 86140

== ENCOUNTER → 2021-07-10 15:45 | Outpatient (CLI) | payer OTHER, SELFPAY ==
[2021-07-10 16:34] LABS: Hematocrit 38.6 % (41-53); Hemoglobin 13.5 g/dL (13.5-17.5)
[2021-07-10 17:06] LABS: BUN Creatinine Ratio 16.8 (6-22); Blood Urea Nitrogen 42 mg/dL (9-20); Calcium 8.9 mg/dL (8.4-10.2); Carbon Dioxide 32 mmol/L (22-32); Chloride 104 mmol/L (98-107); Estimated Glomerular Filt Rate 26 mL/min (>60); Glucose 98 mg/dL (80-110); HEMOLYSIS < 15 (0-50); Potassium 4.2 mmol/L (3.4-5.1); Sodium 140 mmol/L (137-145)
[2021-07-10 19:15] LABS: Creatinine Urine Random 89.5 mg/dL; Protein (Total) Urine Random 127 mg/dL (0-12); Protein Creatinine Ratio Urine 1.41 GRAM/24H
[2021-07-11 05:43] LABS: Parathyroid Hormone Int 81 pg/mL (15-65)
== END ==
PROVIDERS: PCP Internal Medicine; Referring Provider Student in an Organized Health Care Education/Training Program; Visit Provider Student in an Organized Health Care Education/Training Program
DX: D64.9 Anemia, unspecified (principal); N05.9 Unspecified nephritic syndrome with unspecified morphologic changes; N25.81 Secondary hyperparathyroidism of renal origin; R80.9 Proteinuria, unspecified
CPT/HCPCS: 36415; 80048; 82570; 83970; 84156; 85014; 85018

== ENCOUNTER 2021-09-05 12:39 | Emergency (ER) | payer OTHER, SELFPAY ==
[2021-09-05 13:10] VITALS: BP 117/63; PULSE 53; RESP 16; TEMP 36.5; O2SAT 96; BMI 16.2
--- NOTE | 2021-09-05 13:20 | DI.US.S_ITS ---
PROCEDURE: US ARTERIAL DUPLEX LE RT INDICATIONS: TENDER LUMP LATERAL RIGHT THIGH TECHNIQUE: Color and pulse Doppler interrogation was performed of the right lower extremity arterial system, with image documentation. COMPARISON: None. FINDINGS: Common femoral artery: 72 cm/sec, with biphasic flow. Deep femoral artery: 20 cm/sec, with biphasic flow. Proximal superficial femoral artery: 79 cm/sec, with biphasic flow. Mid superficial femoral artery: 38 cm/sec, with biphasic flow. Distal superficial femoral artery: 67 cm/sec, with biphasic flow. Popliteal artery: 37 cm/sec, with biphasic flow. Posterior tibial artery: 26 cm/sec, with biphasic flow. Anterior tibial artery/dorsalis pedis: 72 cm/sec, with biphasic flow. Jean Baptiste-scale imaging description: Scattered atherosclerotic plaque Additionally, there is a complex mass at the area of interest measuring 6.6 x 2.8 x 4.2 cm with a solid and cystic component IMPRESSION: Nonspecific solid and cystic mass lesion at the area of interest. Differential would include benign and neoplastic etiologies. Consider follow-up contrast MR evaluation. Additionally, lesion would be amenable to ultrasound-guided percutaneous biopsy/drainage. Arterial duplex evaluation shows mild atherosclerotic plaque in the right lower extremity arterial system without focal significant stenosis Approved by: Edilberto Sánchez M.D. on 09/05/2021 at 14:17
--- NOTE | 2021-09-05 15:30 | ED_ITS ---
HPI - Extremity Problem <Erendira Zendejas Qasim, [employer] CLERK - Last Filed: 09/05/21 18:19> General Chief complaint: Extremity Injury, Upper Stated complaint: swelling in rt. leg Time Seen by Provider: 09/05/21 12:51 History of Present Illness HPI Narrative: This is a pleasant 75-year-old male who has a history of hypertension, CKD, COPD, AFib and chronic anticoagulation on warfarin CVA, cardiomyopathy, coronary artery disease alcoholism depression who presents to the emergency department complaining of a lump on anterior right thigh which has been there for approximately one week. He endorses a supratherapeutic INR, had his [facility] drawn [facility] yesterday and it was 4.4 on chart review, he held his Coumadin last night. His schedule is 3 mg of Coumadin Friday and Friday, 2 mg every other day. He did not take his Coumadin last night. He denies any chest pain, shortness of breath, wheezing, denies any pedal edema, denies any sensation changes including numbness and tingling, denies any weakness, endorses anterior right thigh pain with walking. He reports that the lump is nontender. He is a current smoker, reports that his health overall is well without any recent changes. His primary care provider is Dr. Batista. Related Data Home Medications Medication Instructions Recorded Confirmed aspirin 81 mg tablet,delayed 81 mg PO DAILY 07/30/18 06/18/21 release isosorbide mononitrate 60 mg 60 mg PO DAILY 07/26/19 06/18/21 tablet,extended release 24 hr chlorthalidone 25 mg tablet 12.5 mg PO DAILY 10/03/20 06/18/21 metoprolol succinate 50 mg 50 mg PO DAILY 10/03/20 06/18/21 tablet,extended release 24 hr potassium chloride 10 mEq 10 meq PO BID 01/16/21 06/18/21 tablet,extended release(part/cryst) hydralazine 25 mg tablet 37.5 mg PO TID 06/18/21 06/18/21 furosemide 20 mg tablet (Lasix) 20 mg PO DAILY 08/01/21 08/01/21 Previous Rx's Medication Instructions Recorded atorvastatin 20 mg tablet 20 mg PO BEDTIME #90 tabs 02/26/19 levothyroxine 75 mcg tablet See Rx Instructions .Route 10/30/20 .COMPLEX #90 tabs warfarin 1 mg tablet See Rx Instructions .Route 02/06/21 .COMPLEX #240 tabs fluticasone 500 mcg-salmeterol 50 1 inh inhalation BID #60 ea 02/20/21 mcg/dose blistr powdr for inhalation (Advair Diskus) Allergies Allergy/AdvReac Type Severity Reaction Status Date / Time No Known Drug Allergies Allergy Verified 06/18/21 11:24 Review of Systems <ERIKA Horner - Last Filed: 09/05/21 18:19> Review of Systems Narrative: General: denies fever, chills, malaise, sweats, fatigue Head/Neck: denies headache, neck pain, dizziness Eyes: denies visual changes, eye pain Cardio: denies chest pain, palpitations, edema Respiratory: denies dyspnea, cough, orthopnea GI: denies abdominal pain, nausea, vomiting, or diarrhea : denies dysuria, hematuria, urinary retention, frequency or incontinence MSK: denies joint pain, muscle weakness, anterior right thigh lump, nontender Skin: denies rash, itching, skin lesions or other Neuro: denies numbness, tingling Patient History <ERIKA Horner - Last Filed: 09/05/21 18:19> Medical History AAA (abdominal aortic aneurysm) (~2015) Acquired hypothyroidism Alcoholism Anticoagulated on warfarin Atherosclerotic heart disease of [place] coronary artery without angina pectoris Atrial fibrillation (~2015) Cardiomyopathy Chicken pox Chronic renal failure, stage 4 (severe) COPD (chronic obstructive pulmonary disease) Depression Essential hypertension (~2010) Fractures Hearing loss Measles Personal history of stroke with current residual effects (~2015) Stroke (~2015) Surgical History Anesthesia S/P tonsillectomy (~194) S/P vasectomy (~1980) Status post percutaneous abdominal aortic aneurysm (AAA) repair (~10/2018) Family History Brother Myocardial infarction Father Malnutrition Mother History of heart disease Sister History of heart artery stent Social History Smoking Status: Current every day smoker Smoking Status: Current every day smoker Exam <ERIKA Horner - Last Filed: 09/05/21 18:19> Narrative Exam Narrative: Independently reviewed vitals signs and nursing notes. General: cooperative, comfortable, in no acute distress, well groomed Head: atraumatic, symmetrical facial expressions Neck: supple Eyes: equal round and reactive, EOMI, conjunctiva normal Nose: nares patent, no rhinorrhea Mouth/Throat: moist mucus membranes Cardiovascular: regular rate and rhythm, no peripheral edema, warm extremities Respiratory: normal effort, able to speak in complete sentences, no audible wheezing, stridor, or rales. No retractions or tachypnea. GI: abdomen soft, nontender to palpation, nondistended, no masses, no exquisite tenderness with exam, without guarding or rebound. MSK: moves all extremities, neurovascularly intact, no weakness, normal tone, anterior right thigh with a palpable fluctuant lump on the mid lateral aspect, no discoloration, erythema, ecchymosis, tenderness, or other. Fluctuant and feels likely to be a cyst or a cyst-like structure. Right pedal DP and PT pulses are 2+ without edema, discoloration, with a brisk cap refill bilaterally. Skin: brisk capillary refill, no rash, no erythema Neuro: normal speech and cognition, A&O x3 Psych: mental status is grossly normal, congruent mood, normal affect, pleasant and cooperative Initial Vital Signs Initial Vital Signs: Vital Signs Temperature 97.7 F 09/05/21 13:10 Pulse Rate 53 L 09/05/21 13:10 Respiratory Rate 16 09/05/21 13:10 Blood Pressure 117/63 09/05/21 13:10 Pulse Oximetry 96 09/05/21 13:10 Oxygen Delivery Method 09/05/21 13:10 <Antonella Hooper DO - Last Filed: 09/09/21 08:00> Initial Vital Signs Initial Vital Signs: Vital Signs Temperature 97.7 F 09/05/21 13:10 Pulse Rate 53 L 09/05/21 13:10 Respiratory Rate 16 09/05/21 13:10 Blood Pressure 117/63 09/05/21 13:10 Pulse Oximetry 96 09/05/21 13:10 Oxygen Delivery Method 09/05/21 13:10 Course <ERIKA Horner - Last Filed: 09/05/21 18:19> Orders Ordered: ED Orders 09/05/21 13:20 US arterial duplex LE RT Stat Vital Signs Vital signs: Vital Signs - 8 hr 09/05/21 13:10 09/05/21 16:12 Temperature 97.7 F Pulse Rate 53 L 55 L Respiratory Rate 16 16 Blood Pressure 117/63 120/65 Pulse Oximetry 96 96 Oxygen Delivery Method Room Air Room Air <Antonella Hooper DO - Last Filed: 09/09/21 08:00> Orders Ordered: ED Orders 09/05/21 13:20 US arterial duplex LE RT Stat Vital Signs Vital signs: Vital Signs - 8 hr 09/05/21 13:10 09/05/21 16:12 Temperature 97.7 F Pulse Rate 53 L 55 L Respiratory Rate 16 16 Blood Pressure 117/63 120/65 Pulse Oximetry 96 96 Oxygen Delivery Method Room Air Room Air MDM - Extremity (Nontraumatic) <ERIKA Horner - Last Filed: 09/05/21 18:19> Imaging Data US - DVT: Radiologist's Impression: PROCEDURE:? US ARTERIAL DUPLEX LE RT ? INDICATIONS:? TENDER LUMP LATERAL RIGHT THIGH ? TECHNIQUE:? Color and pulse Doppler interrogation was performed of the right lower extremity arterial system, with image documentation.? ? COMPARISON:? None. ? FINDINGS:? Common femoral artery:? 72 cm/sec, with biphasic flow.? Deep femoral artery:? 20 cm/sec, with biphasic flow.? Proximal superficial femoral artery:? 79 cm/sec, with biphasic flow.? Mid superficial femoral artery:? 38 cm/sec, with biphasic flow.? Distal superficial femoral artery:? 67 cm/sec, with biphasic flow.? Popliteal artery:? 37 cm/sec, with biphasic flow.? Posterior tibial artery:? 26 cm/sec, with biphasic flow.? Anterior tibial artery/dorsalis pedis:? 72 cm/sec, with biphasic flow.? Jean Baptiste-scale imaging description:? Scattered atherosclerotic plaque ? Additionally, there is a complex mass at the area of interest measuring 6.6 x 2.8 x 4.2 cm with a solid and cystic component ? ? IMPRESSION:? ? Nonspecific solid and cystic mass lesion at the area of interest.? Differential would include benign and neoplastic etiologies.? Consider follow-up contrast MR evaluation.? Additionally, lesion would be amenable to ultrasound-guided percutaneous biopsy/drainage. ? Arterial duplex evaluation shows mild atherosclerotic plaque in the right lower extremity arterial system without focal significant stenosis ? ? Approved by: Edilberto Sánchez M.D. on 09/05/2021 at 14:17? MDM Narrative Medical decision making narrative: This is a pleasant 75-year-old male who has a history of AFib and chronic anticoagulation on warfarin with goal INR 2-3, yesterday his INR was supratherapeutic at 4.4, today it is also 4.4. He presents for a lump on his anterior right thigh which he has noticed for approximately one week and reports it is nontender to palpation and he declines any systemic infectious symptoms. Patient has a stent to the right femoral artery, an arterial duplex scan of his right lower extremity shows a nonspecific solid and cystic mass lesion at the area of interest measuring 6.6 x 2.8 x 4.2 cm. Right lower extremity arteries all with biphasic flow without thrombus and without failed stent. Patient's warfarin dose at baseline is 3 mg on Tuesdays, , Saturdays and 2 mg on all other days. He held his warfarin last night, he understands to hold his warfarin again tonight due to his INR level 4.4 with a suspicious lump on his lateral right thigh. Dr. Batista was consulted for scheduling outpatient biopsy/evaluation of this. Recommend patient have his INR rechecked in two days. His INR goal is 2-3. Discussed with patient his ultrasound findings, his vascular surgeon who completed his femoral artery stent is Dr. Stephens and patient was encouraged to call and set up a follow-up appointment for evaluation if he needs biopsy or drainage of this. This could also be a postoperative seroma but patient reports that this developed within a week that he noticed it. It is nontender to palpation, without erythema or discoloration, low likelihood for this to be infectious. Recommend patient follow-up with Dr. Batista as an outpatient, called to share these findings with Dr. Batista but he was unavailable today, message given to Dr. Green and encourage patient to call and set up an appointment. Patient states understanding. Patient is appropriate and amenable to discharge home. Vital signs are stable on repeat examination is unremarkable. Patient has been informed of results. Patient has been given strict return to ER precautions for any new or worsening symptoms. Patient understands to follow up closely with outpatient providers as instructed. Patient understands plan and agrees to discharge home. All questions and concerns answered at this time. Discharge Plan Departure Patient Disposition: Home Clinical Impression: Supratherapeutic INR, Mass Instructions: DI for Epidermal Cyst, DI for Warfarin Therapy Activity Restrictions/Additional Instructions: *You have been diagnosed with a solid/cystic mass That Measures 6.6 x 2.8 x 4.2 cm in your right thigh.This may be benign, could be Cancerous, and it may be something like an epidermal cyst which I have given you printed information about. There is no obstruction to blood flow of your right leg arteries, so the stent is still functional like it should be. Please hold your INR tonight, and have your INR rechecked in 2 days. You can restart your coumadin that night if your level has come down. Please schedule an appointment with Dr. Batista for recheck to evaluate if you need a biopsy or not. Thank you for trusting us with your care, I have called Dr. Batista and am awaiting his reply. He will be updated about this for you. Please take Tylenol as needed for pain, you can apply topical Voltaren gel if it is uncomfortable, drink plenty of water and follow-up with your providers as an outpatient. Please contact Dr. Stephens and schedule a follow-up appointment for this new cystic mass/ lesion near the area of your stent. *What to do: *Please continue to take your regular medications as directed. [ ] New medication prescriptions sent to your pharmacy: [ ] [ ] New medication written as a paper prescription [x ] No new medications given *Please follow up with your primary care provider in 2-3 days, call for an appointment. Let them know you were seen in the Emergency Department and that we asked that you be seen for follow-up. We will electronically transmit a record of today's note if your PCP is in our system *If you do not have a primary care provider please contact [phone] to establish care with one of the [facility] primary care providers. *Return to Emergency Department if you should have any new, worsening or concerning symptoms, such as [fever greater than 101F, chills, worsening pain, persistent vomiting or other bothersome symptoms] Prescriptions: No Action atorvastatin 20 mg tablet 20 mg PO BEDTIME Qty: 90 1RF Hold Instructions: patient refuses to take this medication. levothyroxine 75 mcg tablet See Rx Instructions .ROUTE .COMPLEX Qty: 90 1RF Hold Instructions: patient refuses to take this medication. Dose Instruction: take 1 tablet by mouth once daily Rx Instructions: take 1 tablet by mouth once daily warfarin 1 mg tablet See Rx Instructions .ROUTE .COMPLEX Qty: 240 3RF Dose Instruction: TAKE 1 TAB BY MOUTH ON FRIDAY AND FRIDAY AND 2 TABS THE OTHER 5 DAYSOR DIRECTED Rx Instructions: TAKE 3 TABS (3mg) BY MOUTH ON FRIDAY, FRIDAY, and FRIDAY, and 2 TABS (2mg) THE OTHER 4 DAYS, OR DIRECTED potassium chloride 10 mEq tablet,ER particles/crystals 10 meq PO BID Label Comments: Take 1 tablet (10 mEq total) by mouth 2 (two) times a day fluticasone propion-salmeterol [Advair Diskus] 500-50 mcg/dose blister with device 1 inh inhalation BID Qty: 60 3RF hydralazine 25 mg tablet 37.5 mg PO TID Hold Instructions: patient refuses to take this medication. aspirin 81 mg tablet,delayed release (DR/EC) 81 mg PO DAILY Hold Instructions: patient refuses to take this medication. isosorbide mononitrate 60 mg tablet extended release 24 hr 60 mg PO DAILY chlorthalidone 25 mg tablet 12.5 mg PO DAILY Hold Instructions: patient refuses to take this medication. metoprolol succinate 50 mg tablet extended release 24 hr 50 mg PO DAILY Hold Instructions: patient refuses to take this medication. Label Comments: take 1 tablet by mouth once daily DO NOT CRUSH OR CHEW furosemide [Lasix] 20 mg tablet 20 mg PO DAILY Referrals: Cheo Batista MD [Primary Care Provider] - Hari Stephens MD [Non-Staff] - Visit Report Forms: Patient Portal/API <Antonella Hooper DO - Last Filed: 09/09/21 08:00> Cosign ED Attending Nhiature Attestation: I was immediately available in the department for consultation. Documentation has been reviewed. I agree with assessment and plan.
[2021-09-05 16:12] VITALS: BP 120/65; PULSE 55; RESP 16; O2SAT 96
== END 2021-09-05 16:13 | disposition home or self-care (01) ==
PROVIDERS: Emergency Provider Nurse Practitioner Critical Care Medicine; PCP Internal Medicine
DX: R22.41 Localized swelling, mass and lump, right lower limb (principal); R79.1 Abnormal coagulation profile; Z79.01 Long term (current) use of anticoagulants; Z95.5 Presence of coronary angioplasty implant and graft
CPT/HCPCS: 93926; 99281; 99283

== ENCOUNTER → 2021-09-07 14:10 | Outpatient (CLI) | payer OTHER, SELFPAY ==
[2021-09-07 14:38] LABS: INR 1.7 (0.9-1.3); Prothrombin Time 19.2 SECONDS (10.1-12.7)
== END ==
PROVIDERS: PCP Internal Medicine; Referring Provider Internal Medicine; Visit Provider Internal Medicine
DX: I48.11 Longstanding persistent atrial fibrillation (principal); R79.1 Abnormal coagulation profile
CPT/HCPCS: 36415; 85610

== ENCOUNTER → 2021-10-15 16:12 | Outpatient (CLI) | payer OTHER, SELFPAY ==
[2021-10-15 17:25] LABS: Add Manual Diff / Slide Review NO; Basophils Absolute Auto 100 /uL (0-100); Basophils Percent Auto 1.7 % (0-2); Eosinophils Absolute Auto 100 /uL (0-450); Eosinophils Percent Auto 2.7 % (2-4); Hematocrit 37.6 % (41-53); Lymphocytes Absolute Auto 1500 /uL (1100-4500); Mean Corpuscular HGB Conc 34.7 % (30-36); Mean Corpuscular Hemoglobin 32.6 PG (26-34); Mean Corpuscular Volume 93.8 fL (80-100); Monocytes Absolute Auto 600 /uL (0-900); Monocytes Percent Auto 11.6 % (3-14); Neutrophils Absolute Auto 3000 /uL (1500-7000); Platelet Count 173 X10^3/uL (150-400); Red Blood Cell Count 4.01 X10^6/uL (4.5-5.9); Red Cell Distribution Width 14.7 % (11.6-14.8); White Blood Cell Count 5.3 X10^3/uL (4.5-11.0)
[2021-10-15 17:30] LABS: INR 3.3 (0.9-1.3); Prothrombin Time 38.6 SECONDS (10.1-12.7)
[2021-10-15 17:58] LABS: Alanine Aminotransferase 14 IU/L (<50); Albumin 3.9 g/dL (3.5-5.0); Albumin Globulin Ratio 1.3 (1.0-2.8); Alkaline Phosphatase 73 U/L (38-126); Aspartate Aminotransferase 20 IU/L (17-59); BUN Creatinine Ratio 25.3 (6-22); Bilirubin Total 0.5 mg/dL (0.2-1.3); Blood Urea Nitrogen 71 mg/dL (9-20); Calcium 9.1 mg/dL (8.4-10.2); Carbon Dioxide 31 mmol/L (22-32); Chloride 101 mmol/L (98-107); Cholesterol 127 mg/dL (140-199); Estimated Glomerular Filt Rate 22 mL/min (>60); Globulin 3.1 g/dL (1.7-4.1); Glucose 95 mg/dL (80-110); HDL Cholesterol 60 mg/dL (40-60); HEMOLYSIS < 15 (0-50); LDL Cholesterol Calculated 49 mg/dL (<100); Potassium 3.5 mmol/L (3.4-5.1); Sodium 141 mmol/L (137-145); Triglycerides 91 mg/dL (35-150)
[2021-10-15 18:14] LABS: Free T4, Direct Thyroxine 1.53 ng/dL (0.78-2.19)
[2021-10-15 18:27] LABS: TSH w/ Reflex to FT4 2.38 uIU/mL (0.47-4.68)
[2021-10-15 18:28] LABS: Thyroid Stimulating Hormone 2.44 uIU/mL (0.47-4.68)
== END ==
PROVIDERS: PCP Internal Medicine; Referring Provider Internal Medicine; Visit Provider Internal Medicine
DX: E03.9 Hypothyroidism, unspecified (principal); I48.91 Unspecified atrial fibrillation; N18.4 Chronic kidney disease, stage 4 (severe); I10 Essential (primary) hypertension; Z79.01 Long term (current) use of anticoagulants
CPT/HCPCS: 36415; 80053; 80061; 84439; 84443; 85025; 85610

== ENCOUNTER → 2022-05-01 13:25 | Outpatient (CLI) | payer OTHER, SELFPAY ==
[2022-05-01 14:05] LABS: Add Manual Diff / Slide Review NO; Basophils Absolute Auto 100 /uL (0-100); Basophils Percent Auto 1.9 % (0-2); Eosinophils Absolute Auto 200 /uL (0-450); Eosinophils Percent Auto 2.8 % (2-4); Hematocrit 40.3 % (41-53); Hemoglobin 13.3 g/dL (13.5-17.5); Lymphocytes Absolute Auto 1700 /uL (1100-4500); Lymphocytes Percent Auto 28.7 % (25-40); Mean Corpuscular HGB Conc 33.1 % (30-36); Mean Corpuscular Hemoglobin 31.4 PG (26-34); Monocytes Absolute Auto 600 /uL (0-900); Monocytes Percent Auto 10.3 % (3-14); Neutrophils Absolute Auto 3300 /uL (1500-7000); Neutrophils Percent Auto 56.3 % (50-75); Platelet Count 171 X10^3/uL (150-400); Red Blood Cell Count 4.25 X10^6/uL (4.5-5.9); Red Cell Distribution Width 14.1 % (11.6-14.8); White Blood Cell Count 5.9 X10^3/uL (4.5-11.0)
[2022-05-01 14:16] LABS: Alanine Aminotransferase 21 IU/L (<50); Albumin 3.7 g/dL (3.5-5.0); Albumin Globulin Ratio 1.4 (1.0-2.8); Alkaline Phosphatase 79 U/L (38-126); Aspartate Aminotransferase 22 IU/L (17-59); BUN Creatinine Ratio 21.6 (6-22); Bilirubin Total 0.6 mg/dL (0.2-1.3); Blood Urea Nitrogen 60 mg/dL (9-20); Calcium 8.9 mg/dL (8.4-10.2); Carbon Dioxide 35 mmol/L (22-32); Chloride 100 mmol/L (98-107); Estimated Glomerular Filt Rate 23 mL/min (>60); Globulin 2.7 g/dL (1.7-4.1); Glucose 112 mg/dL (80-110); HEMOLYSIS < 15 (0-50); Potassium 3.6 mmol/L (3.4-5.1); Sodium 141 mmol/L (137-145); Total Protein 6.4 g/dL (6.3-8.2)
[2022-05-01 14:33] LABS: Free T4, Direct Thyroxine 1.81 ng/dL (0.78-2.19)
[2022-05-01 15:23] LABS: Thyroid Stimulating Hormone 2.51 uIU/mL (0.47-4.68)
[2022-05-01 16:11] LABS: Creatinine Urine Random 75.1 mg/dL; Protein (Total) Urine Random 41 mg/dL (0-12); Protein Creatinine Ratio Urine 0.54 GRAM/24H
[2022-05-04 09:36] LABS: Parathyroid Hormone Int 121 pg/mL (15-65)
== END ==
PROVIDERS: PCP Internal Medicine; Referring Provider Student in an Organized Health Care Education/Training Program; Visit Provider Student in an Organized Health Care Education/Training Program
DX: N05.9 Unspecified nephritic syndrome with unspecified morphologic changes (principal); D64.9 Anemia, unspecified; N25.81 Secondary hyperparathyroidism of renal origin; R80.9 Proteinuria, unspecified; E03.9 Hypothyroidism, unspecified; I10 Essential (primary) hypertension; N18.4 Chronic kidney disease, stage 4 (severe)
CPT/HCPCS: 36415; 80053; 82570; 83970; 84156; 84439; 84443; 85025

== ENCOUNTER → 2022-05-24 13:27 | Outpatient (CLI) | payer OTHER, SELFPAY ==
--- NOTE | 2022-05-24 13:30 | DI.ECHO.S_ITS ---
[facility] +---------+ : : [address] [place] [address] : : : : [id number] : : : : Phone: [phone]---------+ Echocardiogram Report + + :Name: NANCY NICHOLAS Study Date: 05/24/2022 Height: 73 in : :[facility] ReadingLocation: Weight: 118 lb : : Gender: Male BSA: 1.7 m2 : :: 1945 Age: 76 yrs BP: 122/84 mmHg: :Reason For Study: CARDIOMYOPATHY HR: 70 : :Ordering Physician: ABILIO DAVILA : :R Performed By: ZACHARIAH RAINES : :Referring: ABILIO DAVILA : + + Interpretation Summary The left ventricle is mildly dilated. Left ventricular systolic function is severely reduced. The ejection fraction is estimated to be 20%.There is severe global hypokinesis of the left ventricle. The basal inferior and inferolateral yi are thin and akinetic, consistent with prior infarct. LVEDD has improved There is severe biatrial enlargement. There is mild tricuspid regurgitation. The right ventricular systolic pressure is estimated to be at least 27 mmHg based on an estimated right atrial pressure of 3 mm Hg. Procedure: A two-dimensional transthoracic echocardiogram with color flow and Doppler was performed. The study quality was technically adequate. Comparison is made with the echocardiogram of 07/14/2020. The patient was in normal sinus rhythm during the exam. The patient had frequent PVCs during the exam. Left Ventricle: The left ventricle is moderately dilated. There is normal left ventricular wall thickness. The left ventricle is mildly dilated. Left ventricular systolic function is severely reduced. The ejection fraction is estimated to be 20%.There is severe global hypokinesis of the left ventricle. The basal inferior and inferolateral yi are thin and akinetic, consistent with prior infarct. LVEDD has improved. Right Ventricle: The right ventricle is normal size. Right ventricular systolic function is mildly reduced. Atria: The left atrium is severely dilated. There is severe biatrial enlargement. The right atrium is severely dilated. There is no Doppler evidence for an interatrial shunt. Mitral Valve: The mitral valve is normal. There is trace mitral regurgitation. Aortic Valve: The aortic valve is trileaflet. The aortic valve is mildly calcified. There is no aortic valve stenosis. There is trace aortic regurgitation. Tricuspid Valve: The tricuspid valve is normal in structure and function. There is mild tricuspid regurgitation. The right ventricular systolic pressure is estimated to be at least 27 mmHg based on an estimated right atrial pressure of 3 mm Hg. Pulmonic Valve: The pulmonic valve leaflets are thin and pliable; valve motion is normal. There is mild pulmonic regurgitation. Great Vessels: The aortic root is borderline dilated. The ascending aorta could not be visualized. The aortic arch could not be visualized. The IVC is of normal diameter and collapses greater than 50% with a sniff. This suggests a low right atrial pressure of 3 mm Hg. Pericardium/ Pleura There is no pericardial effusion. There is no pleural effusion. MMode/2D Measurements & Calculations LVIDd: 5.8 cm LVOT diam: 2.0 cm LVIDs: 5.1 cm Ao root diam: 3.8 cm FS: 13.3 % IVSd: 0.86 cm LVPWd: 0.68 cm LV lemus. diameter/BSA (cm/m^2): 3.4 LV sys. diameter/BSA (cm/m^2): 2.9 LA A2 area: 28.0 cm2 RA long axis: 5.3 cm LA A4 area: 23.0 cm2 RA area: 21.1 cm2 LA length (vol): 5.4 cm RA vol: 71.1 ml LA vol: 102.0 ml RA : 41.4 ml/m2 LA vol index: 59.3 ml/m2 RVD1 (basal): 3.5 cm TAPSE: 1.5 cm Doppler Measurements & Calculations Ao V2 max: 97.7 cm/sec LVOT Max Bairon: 71.6 cm/sec Ao V2 mean: 79.9 cm/sec LV V1 max P.1 mmHg Ao max P.8 mmHg LV V1 VTI: 10.8 cm Ao mean P.7 mmHg TAWANDA(I,D): 2.4 cm2 Ao V2 VTI: 14.6 cm TAWANDA(V,D): 2.4 cm2 sev ratio: 0.74 TAWANDA indexed to BSA (cm^2/m^2): 1.4 MV E max bairon: 57.1 cm/sec TR max bairon: 243.2 cm/sec MV A max bairon: 37.4 cm/sec TR max P.7 mmHg MV E/A: 1.5 PA V2 max: 78.0 cm/sec MV dec time: 0.24 sec PA V2 mean: 59.8 cm/sec PA mean P.5 mmHg PA pr(Accel): 22.5 mmHg SV(LVOT): 35.6 ml Reading Physician:03:19 PM
== END ==
PROVIDERS: PCP Internal Medicine; Referring Provider Internal Medicine; Visit Provider Internal Medicine
DX: I07.1 Rheumatic tricuspid insufficiency (principal); I37.1 Nonrheumatic pulmonary valve insufficiency; I42.9 Cardiomyopathy, unspecified; I25.10 Atherosclerotic heart disease of native coronary artery without angina pectoris
CPT/HCPCS: 93306

== ENCOUNTER → 2022-09-23 14:17 | Outpatient (CLI) | payer OTHER, SELFPAY ==
[2022-09-23 15:27] LABS: Hematocrit 37.5 % (41-53); Hemoglobin 12.8 g/dL (13.5-17.5)
[2022-09-23 15:41] LABS: BUN Creatinine Ratio 23.3 (6-22); Blood Urea Nitrogen 75 mg/dL (9-20); Carbon Dioxide 34 mmol/L (22-32); Chloride 101 mmol/L (98-107); Estimated Glomerular Filt Rate 19 mL/min (>60); Glucose 81 mg/dL (80-110); HEMOLYSIS < 15 (0-50); Potassium 4.6 mmol/L (3.4-5.1); Sodium 140 mmol/L (137-145)
[2022-09-23 16:25] LABS: Creatinine Urine Random 58.2 mg/dL; Protein (Total) Urine Random 32 mg/dL (0-12); Protein Creatinine Ratio Urine 0.54 GRAM/24H
[2022-09-25 06:56] LABS: Parathyroid Hormone Int 107 pg/mL (15-65)
== END ==
PROVIDERS: PCP Internal Medicine; Referring Provider Student in an Organized Health Care Education/Training Program; Visit Provider Student in an Organized Health Care Education/Training Program
DX: N05.9 Unspecified nephritic syndrome with unspecified morphologic changes (principal); D64.9 Anemia, unspecified; N25.81 Secondary hyperparathyroidism of renal origin; R80.9 Proteinuria, unspecified
CPT/HCPCS: 36415; 80048; 82570; 83970; 84156; 85014; 85018

== ENCOUNTER → 2022-12-04 16:18 | Outpatient (CLI) | payer OTHER, SELFPAY ==
[2022-12-04 18:18] LABS: Hematocrit 36.9 % (41-53); Hemoglobin 12.7 g/dL (13.5-17.5)
[2022-12-04 18:58] LABS: BUN Creatinine Ratio 25.9 (6-22); Blood Urea Nitrogen 77 mg/dL (9-20); Calcium 9.2 mg/dL (8.4-10.2); Carbon Dioxide 32 mmol/L (22-32); Chloride 99 mmol/L (98-107); Estimated Glomerular Filt Rate 21 mL/min (>60); Glucose 128 mg/dL (80-110); HEMOLYSIS < 15 (0-50); Potassium 3.9 mmol/L (3.4-5.1); Sodium 138 mmol/L (137-145)
[2022-12-04 19:12] LABS: Creatinine Urine Random 68.3 mg/dL; Protein (Total) Urine Random 51 mg/dL (0-12); Protein Creatinine Ratio Urine 0.74 GRAM/24H
[2022-12-07 06:40] LABS: Parathyroid Hormone Int 102 pg/mL (15-65)
== END ==
PROVIDERS: PCP Internal Medicine; Referring Provider Student in an Organized Health Care Education/Training Program; Visit Provider Student in an Organized Health Care Education/Training Program
DX: N05.9 Unspecified nephritic syndrome with unspecified morphologic changes (principal); D64.9 Anemia, unspecified; N25.81 Secondary hyperparathyroidism of renal origin; R80.9 Proteinuria, unspecified
CPT/HCPCS: 36415; 80048; 82570; 83970; 84156; 85014; 85018

== ENCOUNTER 2023-01-27 21:35 | Emergency (ER) | payer OTHER, SELFPAY ==
[2023-01-27 21:44] VITALS: BP 142/90; PULSE 89; RESP 18; TEMP 35.5; BMI 14.9
[2023-01-27 22:21] VITALS: PULSE 87; O2SAT 95
[2023-01-27 22:24] VITALS: BP 147/73; PULSE 89; O2SAT 98
[2023-01-27 22:30] VITALS: BP 144/77; PULSE 93; O2SAT 98
[2023-01-27] MEDS: TET,DIPH,PERTUSS(ACELL),VAC/PF 0.5 ML SYRINGE IM (22:34)
--- NOTE | 2023-01-27 22:54 | ED_ITS ---
HPI - Wound/Laceration General Chief Complaint: Wound/Laceration Stated Complaint: GLASS BROKE AND CUT HIS FINGER- on warfarin Time Seen by Provider: 01/27/23 22:42 Source: patient Mode of arrival: Ambulatory History of Present Illness HPI narrative: 77-year-old man who is on warfarin with a laceration to his left small finger. It occurred this afternoon and he is had difficulty controlling the bleeding. Says he cut it on a small piece of broken glass. He does not have a foreign body sensation tetanus needed to be updated and has been updated. Related Data Previous Rx's Medication Instructions Recorded fluticasone 500 mcg-salmeterol 50 1 inh inhalation BID #60 ea 01/03/22 mcg/dose blistr powdr for inhalation (Advair Diskus) warfarin 1 mg tablet See Rx Instructions .Route 03/29/22 .COMPLEX #240 tabs aspirin 81 mg tablet,delayed 81 mg PO DAILY #90 tabs 12/16/22 release atorvastatin 20 mg tablet 20 mg PO BEDTIME #90 tabs 12/16/22 chlorthalidone 25 mg tablet 12.5 mg (1/2 x 25 mg) PO DAILY #45 12/16/22 tabs furosemide 20 mg tablet (Lasix) 20 mg PO DAILY #90 tabs 12/16/22 hydralazine 25 mg tablet 37.5 mg (1.5 x 25 mg) PO TID #409 12/16/22 tabs isosorbide mononitrate 60 mg 60 mg PO DAILY #90 tabs 12/16/22 tablet,extended release 24 hr levothyroxine 75 mcg tablet 75 mcg PO DAILY #90 tabs 12/16/22 potassium chloride 10 mEq 10 meq PO BID #180 tabs 12/16/22 tablet,extended release(part/cryst) metoprolol succinate 50 mg 50 mg PO DAILY #90 tabs 01/06/23 tablet,extended release 24 hr Allergies Allergy/AdvReac Type Severity Reaction Status Date / Time No Known Drug Allergies Allergy Verified 12/18/22 17:25 Patient History Medical History (Updated 01/27/23 @ 22:53 by Gavin Mcneil MD) Malnutrition COPD (chronic obstructive pulmonary disease) Anticoagulated on warfarin Stroke (~2015) Fractures Measles Chicken pox Hearing loss Alcoholism Cardiomyopathy Atherosclerotic heart disease of [place] coronary artery without angina pectoris Chronic renal failure, stage 4 (severe) Personal history of stroke with current residual effects (~2015) Depression Atrial fibrillation (~2015) AAA (abdominal aortic aneurysm) (~2015) Essential hypertension (~2010) Acquired hypothyroidism Surgical History Status post percutaneous abdominal aortic aneurysm (AAA) repair (~10/2018) Anesthesia S/P tonsillectomy (~194) S/P vasectomy (~1980) Family History Brother Myocardial infarction Father Malnutrition Mother History of heart disease Sister History of heart artery stent Social History Smoking Status: Current every day smoker Smoking Status: Current every day smoker Exam Initial Vital Signs Initial Vital Signs: Vital Signs Temperature 96 F L 01/27/23 21:44 Pulse Rate 89 01/27/23 21:44 Respiratory Rate 18 01/27/23 21:44 Blood Pressure 142/90 H 01/27/23 21:44 Const General: No acute distress Neuro General: patient alert and patient oriented x3 Extrem Other: The left small finger has a 1.5 cm superficial laceration on the flexor aspect overlying the proximal and middle phalanx. This laceration appears to be superficial it is not gaping there is minimal oozing of blood from it at this point. He has intact capillary refill sensation and flexion of the finger. There was no glass present. Bleeding is controlled. Course Orders Ordered: Discontinued Medications Bacitracin (Bacitracin Oint 0.9 Gm Pckt) 1 applic TOP NOW ONE Stop: 01/27/23 22:54 Diphtheria/Tetanus/Acell Pertussis (Tet,Diph,Pertuss(Acell),Vac/Pf 0.5 Ml Syringe) 0.5 ml IM .ONCE ONE Stop: 01/27/23 22:29 Last Admin: 01/27/23 22:34 Dose: 0.5 ml Documented By: MARTINEZ Vital Signs Vital signs: Vital Signs - 8 hr 01/27/23 21:44 01/27/23 22:21 01/27/23 22:24 Temperature 96 F L Pulse Rate 89 87 89 Respiratory Rate 18 Blood Pressure 142/90 H Pulse Oximetry 95 98 01/27/23 22:24 Temperature Pulse Rate Respiratory Rate Blood Pressure 147/73 H Pulse Oximetry MDM - Wound/Laceration MDM Narrative Medical decision making narrative: 77-year-old male with a superficial laceration to his left small finger. There was difficulty with hemostasis because he is anticoagulated and on aspirin. Bleeding has now stopped, his wound has been cleaned and a dressing applied. I advised him regarding daily dressing changes and indications for return to the emergency department. Discharge Plan Departure Patient Disposition: Home Clinical Impression: Laceration Instructions: DI for Minor Laceration Activity Restrictions/Additional Instructions: I do not think your finger laceration will require stitching today. I do recommend that you keep it clean and covered until it heals. Use antibiotic ointment and apply a fresh dressing daily. You should also use outlet or Telfa gauze and then 3/4 or 1 in roll bandage. If you find that there is dried blood causing the dressing to stick to your finger you can soak it in warm water for a few minutes at the time of dressing change. If you are having redness swelling increasing pain or severe bleeding return to the emergency department. If you are having minor bleeding, elevating your finger above the level of the heart is likely to help stop it. Tetanus booster was given today, this is good for 10 years. Prescriptions: No Action fluticasone propion-salmeterol [Advair Diskus] 500-50 mcg/dose blister with device 1 inh inhalation BID Qty: 60 3RF warfarin 1 mg tablet See Rx Instructions .ROUTE .COMPLEX Qty: 240 3RF Hold Instructions: Home Medication placed on hold at Doctor's office Dose Instruction: TAKE 1 TAB BY MOUTH ON FRIDAY AND FRIDAY AND 2 TABS THE OTHER 5 DAYSOR DIRECTED Rx Instructions: TAKE 2 mg daily, or as directed chlorthalidone 25 mg tablet 12.5 mg PO DAILY Qty: 45 3RF Hold Instructions: patient refuses to take this medication. atorvastatin 20 mg tablet 20 mg PO BEDTIME Qty: 90 3RF Hold Instructions: patient refuses to take this medication. aspirin 81 mg tablet,delayed release (DR/EC) 81 mg PO DAILY Qty: 90 3RF Hold Instructions: patient refuses to take this medication. levothyroxine 75 mcg tablet 75 mcg PO DAILY Qty: 90 3RF Hold Instructions: patient refuses to take this medication. isosorbide mononitrate 60 mg tablet extended release 24 hr 60 mg PO DAILY Qty: 90 3RF potassium chloride 10 mEq tablet,ER particles/crystals 10 meq PO BID Qty: 180 3RF hydralazine 25 mg tablet 37.5 mg PO TID Qty: 409 3RF Hold Instructions: patient refuses to take this medication. furosemide [Lasix] 20 mg tablet 20 mg PO DAILY Qty: 90 3RF metoprolol succinate 50 mg tablet extended release 24 hr 50 mg PO DAILY Qty: 90 3RF Hold Instructions: patient refuses to take this medication. Referrals: Cheo Batista MD [Primary Care Provider] - Stand Alone Forms: Patient Portal/API
[2023-01-27 23:00] VITALS: PULSE 85; O2SAT 97
[2023-01-27] MEDS: BACITRACIN OINT 0.9 GM PCKT 1 APPLIC TOP (23:00)
[2023-01-27 23:01] VITALS: BP 135/89; PULSE 73; O2SAT 95
== END 2023-01-27 23:10 | disposition home or self-care (01) ==
PROVIDERS: Emergency Provider Emergency Medicine; PCP Internal Medicine
DX: S61.217A Laceration without foreign body of left little finger without damage to nail, initial encounter (principal); Z23 Encounter for immunization; W25.XXXA Contact with sharp glass, initial encounter
CPT/HCPCS: 90471; 99283; 90715

== ENCOUNTER → 2023-01-30 13:29 | Outpatient (CLI) | payer OTHER, SELFPAY ==
[2023-01-30 14:37] LABS: INR 2.4 (0.9-1.3); Prothrombin Time 27.4 SECONDS (9.4-12.5)
== END ==
PROVIDERS: PCP Internal Medicine; Referring Provider Internal Medicine; Visit Provider Internal Medicine
DX: I82.409 Acute embolism and thrombosis of unspecified deep veins of unspecified lower extremity (principal)
CPT/HCPCS: 36415; 85610

== ENCOUNTER → 2023-02-26 12:42 | Outpatient (CLI) | payer OTHER, SELFPAY ==
[2023-02-26 13:33] LABS: INR 2.2 (0.9-1.3); Prothrombin Time 25.8 SECONDS (9.4-12.5)
== END ==
PROVIDERS: PCP Internal Medicine; Referring Provider Internal Medicine; Visit Provider Internal Medicine
DX: I82.409 Acute embolism and thrombosis of unspecified deep veins of unspecified lower extremity (principal)
CPT/HCPCS: 36415; 85610

== ENCOUNTER → 2023-03-10 16:12 | Outpatient (CLI) | payer OTHER, SELFPAY ==
[2023-03-10 17:06] LABS: Add Manual Diff / Slide Review NO; Basophils Absolute Auto 100 /uL (0-100); Basophils Percent Auto 1.3 % (0-2); Eosinophils Absolute Auto 200 /uL (0-450); Eosinophils Percent Auto 3.2 % (2-4); Hematocrit 36.6 % (41-53); Hemoglobin 12.6 g/dL (13.5-17.5); Lymphocytes Absolute Auto 1300 /uL (1100-4500); Lymphocytes Percent Auto 23.4 % (25-40); Mean Corpuscular HGB Conc 34.4 % (30-36); Mean Corpuscular Hemoglobin 32.7 PG (26-34); Monocytes Absolute Auto 600 /uL (0-900); Monocytes Percent Auto 10.4 % (3-14); Neutrophils Absolute Auto 3500 /uL (1500-7000); Neutrophils Percent Auto 61.7 % (50-75); Platelet Count 186 X10^3/uL (150-400); Red Blood Cell Count 3.85 X10^6/uL (4.5-5.9); White Blood Cell Count 5.6 X10^3/uL (4.5-11.0)
[2023-03-10 17:14] LABS: INR 2.6 (0.9-1.3)
[2023-03-10 17:24] LABS: Alanine Aminotransferase 18 IU/L (<50); Albumin 3.6 g/dL (3.5-5.0); Albumin Globulin Ratio 1.2 (1.0-2.8); Alkaline Phosphatase 66 U/L (38-126); Aspartate Aminotransferase 22 IU/L (17-59); BUN Creatinine Ratio 23.3 (6-22); Bilirubin Total 0.6 mg/dL (0.2-1.3); Blood Urea Nitrogen 74 mg/dL (9-20); Calcium 9.5 mg/dL (8.4-10.2); Carbon Dioxide 33 mmol/L (22-32); Chloride 99 mmol/L (98-107); Estimated Glomerular Filt Rate 19 mL/min (>60); Globulin 2.9 g/dL (1.7-4.1); Glucose 89 mg/dL (80-110); HEMOLYSIS < 15 (0-50); Potassium 4.2 mmol/L (3.4-5.1); Sodium 139 mmol/L (137-145); Total Protein 6.5 g/dL (6.3-8.2)
[2023-03-10 17:47] LABS: Free T4, Direct Thyroxine 1.48 ng/dL (0.78-2.19)
[2023-03-10 18:02] LABS: Thyroid Stimulating Hormone 3.65 uIU/mL (0.47-4.68)
== END ==
PROVIDERS: PCP Internal Medicine; Referring Provider Internal Medicine; Visit Provider Internal Medicine
DX: E46 Unspecified protein-calorie malnutrition (principal); Z79.01 Long term (current) use of anticoagulants; I10 Essential (primary) hypertension; N18.4 Chronic kidney disease, stage 4 (severe); E03.9 Hypothyroidism, unspecified
CPT/HCPCS: 36415; 80053; 84439; 84443; 85025; 85610

== ENCOUNTER → 2023-04-18 14:12 | Outpatient (CLI) | payer OTHER, SELFPAY ==
[2023-04-18 15:19] LABS: Hematocrit 39.9 % (41-53); Hemoglobin 13.5 g/dL (13.5-17.5)
[2023-04-18 15:44] LABS: INR 2.7 (0.9-1.3); Prothrombin Time 31.2 SECONDS (9.4-12.5)
[2023-04-18 15:55] LABS: BUN Creatinine Ratio 22.8 (6-22); Blood Urea Nitrogen 74 mg/dL (9-20); Calcium 9.2 mg/dL (8.4-10.2); Carbon Dioxide 34 mmol/L (22-32); Chloride 102 mmol/L (98-107); Estimated Glomerular Filt Rate 19 mL/min (>60); Glucose 96 mg/dL (80-110); HEMOLYSIS < 15 (0-50); Potassium 3.6 mmol/L (3.4-5.1); Sodium 142 mmol/L (137-145)
[2023-04-18 16:44] LABS: Appearance Urine UA CLEAR; Bilirubin Urine UA NEGATIVE (NEGATIVE); Color Urine UA YELLOW; Glucose Urine UA NEGATIVE (Negative); Ketones Urine UA NEGATIVE (NEGATIVE); Leukocyte Esterase Urine UA NEGATIVE (NEGATIVE); Nitrite Urine UA NEGATIVE (Negative); Occult Blood Urine UA 1+ (Negative); Protein Urine UA TRACE (Negative); Specific Gravity Urine UA 1.015 (1.000-1.035); Urobilinogen Urine UA 0.2 E.U./dL (0.2)
[2023-04-18 16:52] LABS: Bacteria Urine None Seen; Culture Indicated Urine Cult Not Indicated; RBC Urine 5-10/HPF (0-5/HPF); Squamous Epithelial Cell Urine None Seen (0-5/HPF); Urine Volume 10mL (spun); WBC Urine None Seen (0-5/HPF)
[2023-04-20 11:15] LABS: Parathyroid Hormone Int 101 pg/mL (15-65)
== END ==
PROVIDERS: Student in an Organized Health Care Education/Training Program; PCP Internal Medicine; Referring Provider Internal Medicine; Visit Provider Internal Medicine
DX: N05.9 Unspecified nephritic syndrome with unspecified morphologic changes (principal); D70.9 Neutropenia, unspecified; D63.1 Anemia in chronic kidney disease; N25.81 Secondary hyperparathyroidism of renal origin; R80.9 Proteinuria, unspecified; I82.409 Acute embolism and thrombosis of unspecified deep veins of unspecified lower extremity
CPT/HCPCS: 36415; 80048; 81001; 83970; 85014; 85018; 85610

== ENCOUNTER → 2023-05-22 13:05 | Outpatient (CLI) | payer OTHER, SELFPAY ==
[2023-05-22 14:49] LABS: Blood Urea Nitrogen 54 mg/dL (9-20); Calcium 9.1 mg/dL (8.4-10.2); Carbon Dioxide 32 mmol/L (22-32); Chloride 107 mmol/L (98-107); Estimated Glomerular Filt Rate 23 mL/min (>60); Glucose 72 mg/dL (80-110); HEMOLYSIS < 15 (0-50); Potassium 3.6 mmol/L (3.4-5.1); Sodium 141 mmol/L (137-145)
[2023-05-22 14:58] LABS: NT-proBNP (BNP-Adult 18+) 8170 pg/mL (<450)
[2023-05-22 15:46] LABS: INR 2.3 (0.9-1.3); Prothrombin Time 26.1 SECONDS (9.4-12.5)
== END ==
PROVIDERS: PCP Internal Medicine; Referring Provider Student in an Organized Health Care Education/Training Program; Visit Provider Student in an Organized Health Care Education/Training Program
DX: I50.32 Chronic diastolic (congestive) heart failure (principal); N05.9 Unspecified nephritic syndrome with unspecified morphologic changes; I82.409 Acute embolism and thrombosis of unspecified deep veins of unspecified lower extremity
CPT/HCPCS: 36415; 80048; 83880; 85610

== ENCOUNTER → 2023-07-25 10:23 | Outpatient (CLI) | payer OTHER, SELFPAY ==
--- NOTE | 2023-07-25 10:24 | DI.RAD.S_ITS ---
PROCEDURE: XR CHEST 2V INDICATIONS: hemoptysis TECHNIQUE: 2 views of the chest were acquired. COMPARISON: Located Within [facility], CR, XR CHEST 2V, 05/10/2021, 9:19. Located Within [facility], CR, XR CHEST 2V, 01/26/2021, 14:25. FINDINGS: Surgical changes and devices: None. Lungs and pleura: Left lower lobe nodule measuring 2.8 cm. Additional adjacent nodularity measuring 0.9 cm. Hazy left basilar opacity. Mediastinum: Mediastinal contours are normal. Heart size is normal. Bones and chest wall: No suspicious bony abnormalities. Soft tissues appear unremarkable. IMPRESSION: Left lower lobe nodules measuring 2.8 cm and 0.9 cm. Recommend dedicated chest CT for further evaluation. Hazy left basilar airspace opacity, probably atelectasis. Call report initiated for this finding. Dictated by: Grayson Miller M.D. on 07/25/2023 at 11:28 Approved by: Grayson Miller M.D. on 07/25/2023 at 11:31
[2023-07-25 11:00] LABS: Add Manual Diff / Slide Review NO; Basophils Absolute Auto 100 /uL (0-100); Basophils Percent Auto 1.6 % (0-2); Eosinophils Absolute Auto 200 /uL (0-450); Hematocrit 35.3 % (41-53); Hemoglobin 11.9 g/dL (13.5-17.5); Lymphocytes Absolute Auto 1500 /uL (1100-4500); Mean Corpuscular HGB Conc 33.7 % (30-36); Mean Corpuscular Hemoglobin 32.1 PG (26-34); Mean Corpuscular Volume 95.3 fL (80-100); Monocytes Absolute Auto 700 /uL (0-900); Monocytes Percent Auto 11.5 % (3-14); Neutrophils Absolute Auto 3500 /uL (1500-7000); Neutrophils Percent Auto 57.9 % (50-75); Platelet Count 168 X10^3/uL (150-400); White Blood Cell Count 6.1 X10^3/uL (4.5-11.0)
[2023-07-25 11:14] LABS: Alanine Aminotransferase 15 IU/L (<50); Albumin 3.6 g/dL (3.5-5.0); Albumin Globulin Ratio 1.5 (1.0-2.8); Alkaline Phosphatase 82 U/L (38-126); Aspartate Aminotransferase 20 IU/L (17-59); BUN Creatinine Ratio 21.4 (6-22); Bilirubin Total 0.6 mg/dL (0.2-1.3); Blood Urea Nitrogen 58 mg/dL (9-20); Calcium 8.8 mg/dL (8.4-10.2); Carbon Dioxide 30 mmol/L (22-32); Chloride 108 mmol/L (98-107); Estimated Glomerular Filt Rate 23 mL/min (>60); Globulin 2.4 g/dL (1.7-4.1); Glucose 98 mg/dL (80-110); HEMOLYSIS < 15 (0-50); Potassium 4.3 mmol/L (3.4-5.1); Sodium 140 mmol/L (137-145)
[2023-07-25 12:02] LABS: INR 2.3 (0.9-1.3); Prothrombin Time 26.9 SECONDS (9.4-12.5)
== END ==
LOC: LAB 10:24
PROVIDERS: PCP Internal Medicine; Referring Provider Internal Medicine; Visit Provider Internal Medicine
DX: R04.2 Hemoptysis (principal); I25.10 Atherosclerotic heart disease of native coronary artery without angina pectoris; I48.91 Unspecified atrial fibrillation; J44.9 Chronic obstructive pulmonary disease, unspecified; N18.4 Chronic kidney disease, stage 4 (severe)
CPT/HCPCS: 36415; 71046; 80053; 85025; 85610

== ENCOUNTER → 2023-07-31 14:55 | Outpatient (CLI) | payer OTHER, SELFPAY ==
--- NOTE | 2023-07-31 14:56 | DI.CT.S_ITS ---
PROCEDURE: CT CHEST WO CON INDICATIONS: Hemoptysis/pulmonary nodule TECHNIQUE: Noncontrast 2.0-2.5 mm thick sections acquired from the pulmonary apices to the posterior costophrenic angles. 7 mm thick axial MIP and 5 mm coronal and sagittal reformats were then acquired. For radiation dose reduction, the following was used: automated exposure control, adjustment of mA and/or kV according to patient size. COMPARISON: [facility], CR, XR CHEST 2V, 01/26/2021, 14:25. [facility], CR, XR CHEST 2V, 05/10/2021, 9:19. [facility], CR, XR CHEST 2V, 07/25/2023, 10:45. FINDINGS: Image quality: Diagnostic. Lower Neck: No enlarged lymph nodes. Thyroid: No thyroid nodules which require sonographic follow up, per consensus guidelines. Axillae: No enlarged lymph nodes. Chest Wall: Unremarkable. Bones: Unremarkable. Lungs and Pleura: Severe centrilobular emphysema is present with an apical predominance. Mild apical scarring is present bilaterally. Focal bronchiectatic airways are present at the posterior medial right lower lobe. There is a circumscribed 2.5 x 2.3 x 2.0 cm mass within the left lower lobe (series 3/image 279 and series 4/38). Slightly more superior and posterior there is a 1.1 x 0.8 by 0.8 cm mass. No other suspicious mass lesions or acute airspace opacities. No pleural effusion or pneumothorax. Heart: Heart size is normal. No pericardial effusion. Thoracic Vessels: The aorta and pulmonary arteries demonstrate normal size. Scattered atheromatous calcifications are present within the aortic arch. Mediastinum and [place]: No enlarged lymph nodes. Esophagus: No wall thickening. No hiatal hernia. Upper Abdomen: Innumerable cystic lesions are partially characterized within the upper poles of the bilateral kidneys. A cystic lesion is present within the right hepatic lobe which is incompletely characterized. There is aneurysmal dilatation of the infrarenal abdominal aorta and an endo graft is partially visualized. Visualized upper abdomen solid organs and bowel loops appear otherwise normal. IMPRESSION: 1. Severe emphysematous change. 2. 2 adjacent soft tissue mass lesions within the left lower lobe. Findings are suspicious for neoplasm. Of note, given the patient's severe pulmonary emphysema, although percutaneous sampling is technically feasible, this patient is at very high risk for recalcitrant pneumothorax. If further characterization is warranted, PET-CT could be used as a non invasive approach to further evaluate these lesions. Fleischner Society criteria for SOLID lung nodule followup. Nodule size (mm)Low-risk patientHigh-risk patient<6 (single or multiple)No routine followup.Optional CT at 12 months. 6-8 (single or multiple)CT at 6-12 months, then optional CT at 18-24 mo.CT at 6-12 months, then CT at 18-24 months. >8 (single)CT at 3 months, PET-CT, or biopsy. Same as for low-risk pts. >8 (multiple)CT at 3-6 months, then optional CT at 18-24 mo.CT at 3-6 months, then CT at 18-24 months. Fleischner Society criteria for SUB-SOLID lung nodule followup. Solitary pure ground-glass nodules<6 mm (ground glass or part solid)No followup needed. 6 mm or larger (ground glass)CT at 6-12 months to confirm persistence, then CT every 2 years until 5 years.6 mm or larger (part solid)CT at 3-6 months to confirm persistence, then annual CT until 5 years if unchanged and solid component remains <6 mm. Multiple sub-solid nodules<6 mmCT at 3-6 months, then CT consider at 2 & 4 years for high risk patients. [address] at 3-6 months. Subsequent management based on most suspicious lesions. Recommendations do not apply to lung cancer screening, patients with immunosuppression, or patients with known primary cancer. Dictated by: Maida Zhou M.D. on 07/31/2023 at 17:36 Approved by: Maida Zhou M.D. on 07/31/2023 at 17:42
== END ==
PROVIDERS: PCP Internal Medicine; Referring Provider Internal Medicine; Visit Provider Internal Medicine
DX: J43.2 Centrilobular emphysema (principal); R91.8 Other nonspecific abnormal finding of lung field; R91.1 Solitary pulmonary nodule; R04.2 Hemoptysis
CPT/HCPCS: 71250

== ENCOUNTER → 2023-09-30 13:11 | Outpatient (CLI) | payer OTHER, SELFPAY ==
[2023-09-30 14:34] LABS: INR 2.2 (0.9-1.3); Prothrombin Time 25.8 SECONDS (9.4-12.5)
[2023-09-30 14:41] LABS: BUN Creatinine Ratio 27.3 (6-22); Blood Urea Nitrogen 73 mg/dL (9-20); Calcium 9.3 mg/dL (8.4-10.2); Carbon Dioxide 26 mmol/L (22-32); Chloride 107 mmol/L (98-107); Estimated Glomerular Filt Rate 24 mL/min (>60); Glucose 92 mg/dL (80-110); Potassium 4.3 mmol/L (3.4-5.1); Sodium 141 mmol/L (137-145)
[2023-09-30 14:43] LABS: HEMOLYSIS 54 (0-50)
== END ==
PROVIDERS: PCP Internal Medicine; Referring Provider Internal Medicine; Visit Provider Internal Medicine
DX: N18.4 Chronic kidney disease, stage 4 (severe) (principal); Z79.01 Long term (current) use of anticoagulants; I48.11 Longstanding persistent atrial fibrillation
CPT/HCPCS: 36415; 80048; 85610

== ENCOUNTER → 2023-11-03 14:19 | Outpatient (CLI) | payer OTHER, SELFPAY ==
[2023-11-03 15:05] LABS: INR 1.9 (0.9-1.3); Prothrombin Time 21.9 SECONDS (9.4-12.5)
== END ==
PROVIDERS: PCP Internal Medicine; Referring Provider Internal Medicine; Visit Provider Internal Medicine
DX: I48.91 Unspecified atrial fibrillation (principal); Z79.01 Long term (current) use of anticoagulants
CPT/HCPCS: 36415; 85610

== ENCOUNTER → 2023-12-29 16:20 | Outpatient (CLI) | payer OTHER, SELFPAY ==
[2023-12-29 17:00] LABS: Add Manual Diff / Slide Review NO; Basophils Absolute Auto 100 /uL (0-100); Basophils Percent Auto 1.4 % (0-2); Eosinophils Absolute Auto 200 /uL (0-450); Eosinophils Percent Auto 3.8 % (2-4); Hematocrit 36.8 % (41-53); Hemoglobin 12.1 g/dL (13.5-17.5); Lymphocytes Absolute Auto 1400 /uL (1100-4500); Lymphocytes Percent Auto 24.1 % (25-40); Mean Corpuscular Hemoglobin 31.6 PG (26-34); Mean Corpuscular Volume 95.7 fL (80-100); Monocytes Absolute Auto 600 /uL (0-900); Neutrophils Absolute Auto 3400 /uL (1500-7000); Neutrophils Percent Auto 60.7 % (50-75); Platelet Count 179 X10^3/uL (150-400); Red Blood Cell Count 3.85 X10^6/uL (4.5-5.9); Red Cell Distribution Width 14.5 % (11.6-14.8); White Blood Cell Count 5.6 X10^3/uL (4.5-11.0)
[2023-12-29 17:07] LABS: INR 2.6 (0.9-1.3); Prothrombin Time 28.4 SECONDS (9.4-12.5)
[2023-12-29 17:11] LABS: Alanine Aminotransferase 16 IU/L (<50); Albumin 3.6 g/dL (3.5-5.0); Albumin Globulin Ratio 1.3 (1.0-2.8); Alkaline Phosphatase 75 U/L (38-126); Aspartate Aminotransferase 19 IU/L (17-59); Bilirubin Total 0.4 mg/dL (0.2-1.3); Blood Urea Nitrogen 53 mg/dL (9-20); Calcium 9.2 mg/dL (8.4-10.2); Carbon Dioxide 33 mmol/L (22-32); Chloride 103 mmol/L (98-107); Estimated Glomerular Filt Rate 18 mL/min (>60); Globulin 2.8 g/dL (1.7-4.1); Glucose 149 mg/dL (80-110); HEMOLYSIS < 15 (0-50); Potassium 3.6 mmol/L (3.4-5.1); Sodium 141 mmol/L (137-145); Total Protein 6.4 g/dL (6.3-8.2)
[2023-12-29 17:28] LABS: Free T4, Direct Thyroxine 1.22 ng/dL (0.78-2.19)
[2023-12-29 17:42] LABS: Thyroid Stimulating Hormone 3.69 uIU/mL (0.47-4.68)
== END ==
PROVIDERS: PCP Internal Medicine; Referring Provider Internal Medicine; Visit Provider Internal Medicine
DX: I12.9 Hypertensive chronic kidney disease with stage 1 through stage 4 chronic kidney disease, or unspecified chronic kidney disease (principal); N18.4 Chronic kidney disease, stage 4 (severe); Z79.01 Long term (current) use of anticoagulants; I48.11 Longstanding persistent atrial fibrillation; E03.9 Hypothyroidism, unspecified
CPT/HCPCS: 36415; 80053; 84439; 84443; 85025; 85610

== ENCOUNTER → 2024-01-22 15:53 | Outpatient (CLI) | payer OTHER, SELFPAY ==
[2024-01-22 16:44] LABS: Hematocrit 36.6 % (41-53); Hemoglobin 12.5 g/dL (13.5-17.5)
[2024-01-22 17:18] LABS: BUN Creatinine Ratio 19.2 (6-22); Blood Urea Nitrogen 65 mg/dL (9-20); Calcium 9.1 mg/dL (8.4-10.2); Carbon Dioxide 33 mmol/L (22-32); Chloride 103 mmol/L (98-107); Estimated Glomerular Filt Rate 18 mL/min (>60); Glucose 95 mg/dL (80-110); HEMOLYSIS < 15 (0-50); Potassium 4.1 mmol/L (3.4-5.1); Sodium 139 mmol/L (137-145)
[2024-01-22 17:19] LABS: Creatinine Urine Random 82.21 mg/dL; Protein (Total) Urine Random 133 mg/dL (0-12); Protein Creatinine Ratio Urine 1.61 GRAM/24H
[2024-01-24 09:36] LABS: Parathyroid Hormone Int 106 pg/mL (15-65)
== END ==
PROVIDERS: PCP Internal Medicine; Referring Provider Student in an Organized Health Care Education/Training Program; Visit Provider Student in an Organized Health Care Education/Training Program
DX: N05.9 Unspecified nephritic syndrome with unspecified morphologic changes (principal); D70.9 Neutropenia, unspecified; D63.1 Anemia in chronic kidney disease; R80.9 Proteinuria, unspecified; N25.81 Secondary hyperparathyroidism of renal origin
CPT/HCPCS: 36415; 80048; 82570; 83970; 84156; 85014; 85018

== ENCOUNTER → 2024-03-25 13:59 | Outpatient (CLI) | payer OTHER, SELFPAY ==
--- NOTE | 2024-03-25 14:05 | DI.RAD.S_ITS ---
PROCEDURE: XR CHEST 2V INDICATIONS: pulm nodules/hemoptysis TECHNIQUE: 2 views of the chest were acquired. COMPARISON: [facility], CR, XR CHEST 2V, 07/25/2023, 10:45. FINDINGS: Heart, mediastinum and pulmonary vascular: Heart is mildly enlarged, but unchanged.. Mediastinum is unremarkable. Pulmonary vascular is normal. Lungs: Scattered tiny calcified granulomas again noted. The pulmonary nodules in the left lower lobe, seen on the 07/25/2023 comparison exam, are no longer apparent Pleural spaces: Normal-no effusions or pneumothorax. Bones and soft tissues: Moderate degenerative disc disease is seen throughout the thoracic spine with minimal chronic wedging IMPRESSION: Interval resolution in left lower lobe pulmonary nodules. Dictated by: Cheo Sullivan M.D. on 03/26/2024 at 11:58 Approved by: Cheo Sullivan M.D. on 03/26/2024 at 12:00
[2024-03-25 15:11] LABS: INR 2.3 (0.9-1.3); Prothrombin Time 25.3 SECONDS (9.4-12.5)
== END ==
LOC: LAB 14:04
PROVIDERS: PCP Internal Medicine; Referring Provider Internal Medicine; Visit Provider Internal Medicine
DX: R04.2 Hemoptysis (principal); R91.1 Solitary pulmonary nodule; I48.11 Longstanding persistent atrial fibrillation; I69.30 Unspecified sequelae of cerebral infarction
CPT/HCPCS: 36415; 71046; 85610

== ENCOUNTER → 2024-03-26 12:35 | Outpatient (CLI) | payer OTHER, SELFPAY ==
[2024-03-26 12:54] LABS: Hematocrit 34.3 % (41-53); Hemoglobin 11.7 g/dL (13.5-17.5)
[2024-03-26 13:10] LABS: BUN Creatinine Ratio 18.6 (6-22); Blood Urea Nitrogen 55 mg/dL (9-20); Carbon Dioxide 27 mmol/L (22-32); Chloride 106 mmol/L (98-107); Estimated Glomerular Filt Rate 21 mL/min (>60); Glucose 98 mg/dL (80-110); HEMOLYSIS < 15 (0-50); Potassium 3.9 mmol/L (3.4-5.1); Sodium 140 mmol/L (137-145)
[2024-03-26 14:52] LABS: Creatinine Urine Random 93.68 mg/dL
[2024-03-26 14:59] LABS: Protein (Total) Urine Random 281 mg/dL (0-12); Protein Creatinine Ratio Urine 2.99 GRAM/24H
[2024-03-28 07:38] LABS: Parathyroid Hormone Int 136 pg/mL (15-65)
== END ==
LOC: LAB 12:36
PROVIDERS: PCP Internal Medicine; Referring Provider Student in an Organized Health Care Education/Training Program; Visit Provider Student in an Organized Health Care Education/Training Program
DX: N05.9 Unspecified nephritic syndrome with unspecified morphologic changes (principal); D70.9 Neutropenia, unspecified; D63.1 Anemia in chronic kidney disease; R80.9 Proteinuria, unspecified; N25.81 Secondary hyperparathyroidism of renal origin
CPT/HCPCS: 36415; 80048; 82570; 83970; 84156; 85014; 85018

== ENCOUNTER → 2024-04-30 14:08 | Outpatient (CLI) | payer OTHER, SELFPAY ==
[2024-04-30 14:51] LABS: Blood Urea Nitrogen 71 mg/dL (9-20); Calcium 9.7 mg/dL (8.4-10.2); Carbon Dioxide 29 mmol/L (22-32); Chloride 103 mmol/L (98-107); Estimated Glomerular Filt Rate 19 mL/min (>60); Glucose 84 mg/dL (80-110); HEMOLYSIS < 15 (0-50); Potassium 3.8 mmol/L (3.4-5.1); Sodium 140 mmol/L (137-145)
[2024-04-30 15:01] LABS: NT-proBNP (BNP-Adult 18+) 5540 pg/mL (<450)
[2024-05-01 10:10] LABS: Parathyroid Hormone Int 90 pg/mL (15-65)
== END ==
PROVIDERS: PCP Internal Medicine; Referring Provider Student in an Organized Health Care Education/Training Program; Visit Provider Student in an Organized Health Care Education/Training Program
DX: I50.32 Chronic diastolic (congestive) heart failure (principal); N05.9 Unspecified nephritic syndrome with unspecified morphologic changes; N25.81 Secondary hyperparathyroidism of renal origin
CPT/HCPCS: 36415; 80048; 83880; 83970

== ENCOUNTER → 2024-06-24 10:20 | Outpatient (CLI) | payer OTHER, SELFPAY ==
[2024-06-24 11:27] LABS: Hemoglobin A1C% w Est Avg Glu 5.3 % (4.0-6.0)
[2024-06-24 11:28] LABS: Add Manual Diff / Slide Review NO; Basophils Absolute Auto 100 /uL (0-100); Basophils Percent Auto 1.3 % (0-2); Eosinophils Absolute Auto 200 /uL (0-450); Eosinophils Percent Auto 3.3 % (2-4); Hematocrit 38.5 % (41-53); Hemoglobin 12.9 g/dL (13.5-17.5); Lymphocytes Absolute Auto 1400 /uL (1100-4500); Mean Corpuscular HGB Conc 33.4 % (30-36); Mean Corpuscular Hemoglobin 31.8 PG (26-34); Mean Corpuscular Volume 95.2 fL (80-100); Monocytes Absolute Auto 600 /uL (0-900); Monocytes Percent Auto 9.8 % (3-14); Neutrophils Absolute Auto 4100 /uL (1500-7000); Neutrophils Percent Auto 63.6 % (50-75); Platelet Count 185 X10^3/uL (150-400); Red Blood Cell Count 4.05 X10^6/uL (4.5-5.9); Red Cell Distribution Width 14.6 % (11.6-14.8); White Blood Cell Count 6.4 X10^3/uL (4.5-11.0)
[2024-06-24 11:56] LABS: Alanine Aminotransferase 20 IU/L (<50); Albumin 4.2 g/dL (3.5-5.0); Albumin Globulin Ratio 1.5 (1.0-2.8); Alkaline Phosphatase 89 U/L (38-126); Aspartate Aminotransferase 23 IU/L (17-59); Bilirubin Total 0.6 mg/dL (0.2-1.3); Blood Urea Nitrogen 76 mg/dL (9-20); Calcium 9.1 mg/dL (8.4-10.2); Carbon Dioxide 24 mmol/L (22-32); Chloride 105 mmol/L (98-107); Cholesterol 170 mg/dL (140-199); Estimated Glomerular Filt Rate 18 mL/min (>60); Globulin 2.8 g/dL (1.7-4.1); Glucose 94 mg/dL (70-99); HDL Cholesterol 93 mg/dL (40-60); HEMOLYSIS < 15 (0-50); LDL Cholesterol Calculated 61 mg/dL (<100); Magnesium 2.2 mg/dL (1.6-2.3); Sodium 140 mmol/L (137-145); Triglycerides 79 mg/dL (35-150)
[2024-06-24 12:14] LABS: Free T4, Direct Thyroxine 1.51 ng/dL (0.78-2.19)
[2024-06-24 12:28] LABS: Thyroid Stimulating Hormone 4.09 uIU/mL (0.47-4.68)
== END ==
PROVIDERS: PCP Internal Medicine; Referring Provider Internal Medicine Cardiovascular Disease; Visit Provider Internal Medicine Cardiovascular Disease
DX: I10 Essential (primary) hypertension (principal); Z13.1 Encounter for screening for diabetes mellitus; E78.5 Hyperlipidemia, unspecified; I48.91 Unspecified atrial fibrillation
CPT/HCPCS: 36415; 80053; 80061; 83036; 83735; 84439; 84443; 85025

== ENCOUNTER → 2024-07-14 12:50 | Outpatient (CLI) | payer OTHER, SELFPAY ==
--- NOTE | 2024-07-14 12:52 | DI.ECHO.S_ITS ---
[facility] : : [address] : : [id number] : : Phone: [phone] Echocardiogram Report + + :Name: NANCY NICHOLAS Study Date: 07/14/2024 Height: 69 in : :[facility] ReadingLocation: Weight: 122 lb : : Gender: Male BSA: 1.7 m2 : :: 1945 Age: 78 yrs BP: 117/83 mmHg: :Reason For Study: HEART FAILURE : :Ordering Physician: ORALIA, : :KELLEN Colmenares Performed By: Erlin Gutiérrez : :Referring: KELLEN BARAJAS : + + Interpretation Summary The patient was in atrial fibrillation with heart rates between 73-115 bpm during the exam. The left ventricle is mildly dilated. The ejection fraction is estimated to be 15-20%. There is akinesis of the basal to mid inferior and basal inferolateral yi. The right ventricle is normal in size and function. There is an interatrial septal defect noted by color Doppler. Severe biatrial enlargement. There is mild tricuspid regurgitation. Pulmonary artery pressures cannot be estimated because of the lack of a measurable TR jet velocity but the IVC suggests a CVP of around 8 mmHg. No significant change compared to prior study 05/24/2022. Procedure: A two-dimensional transthoracic echocardiogram with color flow and Doppler was performed. The study quality was technically good. Comparison is made with the echocardiogram of 05/24/2022. The patient was in atrial fibrillation with heart rates between 73-115 bpm during the exam. Left Ventricle: The left ventricle is mildly dilated. Left ventricular wall thickness is mildly increased. There is no ventricular septal defect visualized. The ejection fraction is estimated to be 15-20%. There is akinesis of the basal to mid inferior and basal inferolateral yi. Diastolic function could not be accurately assessed due to atrial fibrillation. Right Ventricle: The right ventricle is normal in size and function. Atria: The left atrium is severely dilated. The right atrium is severely dilated. There is an interatrial septal defect noted by color Doppler. Mitral Valve: The mitral valve leaflets appear mildly thickened, but open well. There is trace mitral regurgitation. Aortic Valve: The aortic valve is trileaflet. The aortic valve is mildly calcified. There is no hemodynamically significant valvular aortic stenosis. There is trace aortic regurgitation. Tricuspid Valve: The tricuspid valve is normal in structure and function. There is mild tricuspid regurgitation. Pulmonary artery pressures cannot be estimated because of the lack of a measurable TR jet velocity but the IVC suggests a CVP of around 8 mmHg. Pulmonic Valve: The pulmonic valve is not well seen, but is grossly normal. There is trace pulmonic regurgitation. Great Vessels: The aortic root is normal size. The dimensions of the ascending aorta are normal. The pulmonary artery is normal size. The IVC is dilated (diameter is greater than 2.1 cm) yet it collapses greater than 50% with a sniff. This suggests a right atrial pressure of 8 mm Hg. Pericardium/ Pleura There is no pericardial effusion. There is no pleural effusion. MMode/2D Measurements & Calculations LVIDd: 5.9 cm LVOT diam: 2.2 cm LVIDs: 5.4 cm Ao root diam: 3.6 cm FS: 8.4 % asc Aorta Diam: 3.4 cm EPSS: 1.5 cm IVSd: 1.2 cm LVPWd: 0.80 cm LV lemus. diameter/BSA (cm/m^2): 3.5 LV sys. diameter/BSA (cm/m^2): 3.2 LA A2 area: 33.7 cm2 RA long axis: 5.9 cm LA A4 area: 38.4 cm2 RA area: 28.0 cm2 LA length (vol): 7.5 cm RA vol: 112.7 ml LA vol: 146.3 ml RA : 67.3 ml/m2 LA vol index: 87.4 ml/m2 IVC diam: 2.1 cm RVD1 (basal): 3.6 cm RVD2 (mid): 2.6 cm TAPSE: 1.5 cm Doppler Measurements & Calculations Ao V2 max: 176.8 cm/sec LVOT Max Bairon: 93.8 cm/sec Ao V2 mean: 130.7 cm/sec LV V1 max P.5 mmHg Ao max P.5 mmHg LV V1 VTI: 16.2 cm Ao mean P.3 mmHg TAWANDA(I,D): 1.9 cm2 Ao V2 VTI: 31.8 cm TAWANDA(V,D): 2.0 cm2 sev ratio: 0.51 TAWANDA indexed to BSA (cm^2/m^2): 1.2 MV E max bairon: 67.2 cm/sec TR max bairon: 298.1 cm/sec MV A max bairon: 2.4 cm/sec TR max P.5 mmHg MV E/A: 28.5 PA V2 max: 140.8 cm/sec Med Peak E' Bairon: 4.6 cm/sec PA V2 mean: 98.3 cm/sec E/E' med: 14.5 PA mean P.3 mmHg Lat Peak E' Bairon: 12.0 cm/sec PA pr(Accel): 48.2 mmHg E/E' lat: 5.6 E/e' average: 10.0 MV dec time: 0.09 sec SV(LVOT): 62.0 ml Reading Physician:04:50 PM
== END ==
LOC: ECHO 12:51
PROVIDERS: PCP Internal Medicine; Referring Provider Internal Medicine Cardiovascular Disease; Visit Provider Internal Medicine Cardiovascular Disease
DX: I07.1 Rheumatic tricuspid insufficiency (principal); I50.22 Chronic systolic (congestive) heart failure
CPT/HCPCS: 93306

== ENCOUNTER → 2024-07-16 13:27 | Outpatient (CLI) | payer OTHER, SELFPAY ==
--- NOTE | 2024-07-16 13:28 | DI.US.S_ITS ---
PROCEDURE: US RETRO PERITONEAL LIMITED INDICATIONS: HF / PAD TECHNIQUE: Real time scanning was performed of the aorta and iliac arteries, with image documentation. COMPARISON: [facility], CT, CT CHEST WO CON, 07/31/2023, 15:12. [facility], US, US RETRO PERITONEAL LIMITED, 10/08/2018, 9:23. FINDINGS: Aorta: Proximal aorta measures 2.7 cm. Mid aorta measures 3.6 x 4.2 cm. Distal aorta measures 7.2 x 6.2 cm. Stent is in place. Velocity just proximal is stent is 21 centimeters/second. Iliac arteries: Right common iliac artery not well seen due to stent. Left common iliac artery measures 1.9 cm. IMPRESSION: Aortoiliac stent graft with aneurysmal dilation. Slower than expected velocity seen just proximal to the graft. CT arteriogram recommended for surveillance and further evaluation. Dictated by: Frederick Murillo M.D. on 07/16/2024 at 15:38 Approved by: Frederick Murillo M.D. on 07/16/2024 at 15:50
== END ==
PROVIDERS: PCP Internal Medicine; Referring Provider Internal Medicine Cardiovascular Disease; Visit Provider Internal Medicine Cardiovascular Disease
DX: Z98.890 Other specified postprocedural states (principal); Z86.79 Personal history of other diseases of the circulatory system; Z95.818 Presence of other cardiac implants and grafts
CPT/HCPCS: 76775

== ENCOUNTER → 2024-08-18 15:07 | Outpatient (CLI) | payer OTHER, SELFPAY ==
--- NOTE | 2024-08-18 15:09 | DI.RAD.S_ITS ---
PROCEDURE: XR CHEST 2V INDICATIONS: Hemeoptysis TECHNIQUE: 2 views of the chest were acquired. COMPARISON: [facility], CR, XR CHEST 2V, 03/25/2024, 14:13. FINDINGS: Surgical changes and devices: None. Lungs and pleura: Emphysematous changes are seen. Hyperinflation. No focal infiltrate. No pleural effusions or pneumothorax. Mediastinum: Mediastinal contours are normal. Heart size is normal. Bones and chest wall: No suspicious bony abnormalities. Soft tissues appear unremarkable. IMPRESSION: No acute cardiopulmonary pathology. COPD. Dictated by: Shar Lincoln M.D. on 08/19/2024 at 10:26 Approved by: Shar Lincoln M.D. on 08/19/2024 at 10:29
[2024-08-18 16:17] LABS: Add Manual Diff / Slide Review NO; Hematocrit 33.5 % (41-53); Hemoglobin 11.5 g/dL (13.5-17.5); Lymphocytes Absolute Auto 1200 /uL (1100-4500); Mean Corpuscular HGB Conc 34.3 % (30-36); Mean Corpuscular Hemoglobin 32.2 PG (26-34); Mean Corpuscular Volume 93.8 fL (80-100); Platelet Count 185 X10^3/uL (150-400)
[2024-08-18 17:20] LABS: Free T4, Direct Thyroxine 1.86 ng/dL (0.78-2.19)
[2024-08-18 17:34] LABS: Thyroid Stimulating Hormone 3.64 uIU/mL (0.47-4.68)
[2024-08-18 21:06] LABS: Alanine Aminotransferase 16 IU/L (<50); Albumin 3.6 g/dL (3.5-5.0); Albumin Globulin Ratio 1.2 (1.0-2.8); Alkaline Phosphatase 80 U/L (38-126); Blood Urea Nitrogen 76 mg/dL (9-20); Calcium 11.1 mg/dL (8.4-10.2); Carbon Dioxide 30 mmol/L (22-32); Chloride 99 mmol/L (98-107); Estimated Glomerular Filt Rate 19 mL/min (>60); Globulin 2.9 g/dL (1.7-4.1); Glucose 96 mg/dL (70-99); HEMOLYSIS < 15 (0-50); Potassium 3.8 mmol/L (3.4-5.1); Sodium 137 mmol/L (137-145); Total Protein 6.5 g/dL (6.3-8.2)
[2024-08-18 21:13] LABS: NT-proBNP (BNP-Adult 18+) 6810 pg/mL (<450)
== END ==
PROVIDERS: PCP Internal Medicine; Referring Provider Family Medicine; Visit Provider Family Medicine
DX: I10 Essential (primary) hypertension (principal); J44.9 Chronic obstructive pulmonary disease, unspecified; I25.5 Ischemic cardiomyopathy
CPT/HCPCS: 36415; 71046; 80053; 83880; 84439; 84443; 85025

== ENCOUNTER → 2024-09-06 13:36 | Outpatient (CLI) | payer OTHER, SELFPAY ==
[2024-09-06 15:13] LABS: Hematocrit 32.0 % (41-53); Hemoglobin 11.2 g/dL (13.5-17.5)
[2024-09-06 15:39] LABS: Blood Urea Nitrogen 92 mg/dL (9-20); Calcium 10.0 mg/dL (8.4-10.2); Carbon Dioxide 27 mmol/L (22-32); Chloride 103 mmol/L (98-107); Estimated Glomerular Filt Rate 17 mL/min (>60); Glucose 87 mg/dL (70-99); HEMOLYSIS < 15 (0-50); Potassium 3.8 mmol/L (3.4-5.1); Sodium 140 mmol/L (137-145)
[2024-09-06 16:04] LABS: Protein (Total) Urine Random 87 mg/dL (0-12); Protein Creatinine Ratio Urine 1.37 GRAM/24H
== END ==
PROVIDERS: PCP Internal Medicine; Referring Provider Student in an Organized Health Care Education/Training Program; Visit Provider Student in an Organized Health Care Education/Training Program
DX: D70.9 Neutropenia, unspecified (principal); N05.9 Unspecified nephritic syndrome with unspecified morphologic changes; N25.81 Secondary hyperparathyroidism of renal origin; R80.9 Proteinuria, unspecified; N18.4 Chronic kidney disease, stage 4 (severe); I10 Essential (primary) hypertension; D63.0 Anemia in neoplastic disease
CPT/HCPCS: 36415; 80048; 82570; 83970; 84156; 85014; 85018

== ENCOUNTER → 2024-12-20 11:15 | Outpatient (CLI) | payer OTHER, SELFPAY ==
[2024-12-20 12:15] LABS: Add Manual Diff / Slide Review NO; Hematocrit 31.1 % (41-53); Hemoglobin 10.7 g/dL (13.5-17.5); Lymphocytes Absolute Auto 1100 /uL (1100-4500); Mean Corpuscular HGB Conc 34.3 % (30-36); Mean Corpuscular Hemoglobin 32.1 PG (26-34); Mean Corpuscular Volume 93.3 fL (80-100); Platelet Count 190 X10^3/uL (150-400)
[2024-12-20 12:40] LABS: INR 4.4 (0.9-1.3); Prothrombin Time 48.4 SECONDS (9.4-12.5)
[2024-12-20 12:53] LABS: Alanine Aminotransferase 15 IU/L (<50); Albumin 3.1 g/dL (3.5-5.0); Albumin Globulin Ratio 1.1 (1.0-2.8); Alkaline Phosphatase 109 U/L (38-126); Blood Urea Nitrogen 62 mg/dL (9-20); Calcium 8.6 mg/dL (8.4-10.2); Carbon Dioxide 30 mmol/L (22-32); Chloride 104 mmol/L (98-107); Cholesterol 117 mg/dL (140-199); Estimated Glomerular Filt Rate 24 mL/min (>60); Globulin 2.7 g/dL (1.7-4.1); Glucose 92 mg/dL (70-99); HDL Cholesterol 77 mg/dL (40-60); HEMOLYSIS < 15 (0-50); Potassium 4.0 mmol/L (3.4-5.1); Sodium 139 mmol/L (137-145); Total Protein 5.8 g/dL (6.3-8.2); Triglycerides 95 mg/dL (35-150)
[2024-12-20 13:08] LABS: Free T4, Direct Thyroxine 1.33 ng/dL (0.78-2.19)
[2024-12-20 13:22] LABS: Thyroid Stimulating Hormone 5.62 uIU/mL (0.47-4.68)
== END ==
PROVIDERS: PCP Internal Medicine; Referring Provider Internal Medicine; Visit Provider Internal Medicine
DX: R04.2 Hemoptysis (principal); I10 Essential (primary) hypertension; N18.4 Chronic kidney disease, stage 4 (severe); E03.9 Hypothyroidism, unspecified; Z79.01 Long term (current) use of anticoagulants
CPT/HCPCS: 36415; 80053; 80061; 84439; 84443; 85025; 85610

== ENCOUNTER → 2025-01-11 11:46 | Outpatient (CLI) | payer OTHER, SELFPAY ==
--- NOTE | 2025-01-11 11:48 | DI.RAD.S_ITS ---
PROCEDURE: XR CHEST 2V INDICATIONS: cough TECHNIQUE: 2 views of the chest were acquired. COMPARISON: [facility], CR, XR CHEST 2V, 08/18/2024, 14:35. FINDINGS: Surgical changes and devices: None. Lungs and pleura: There is pulmonary vascular congestion. Emphysematous changes are seen. Small left pleural effusion is seen with left basilar atelectasis. No definite focal infiltrate. No pneumothorax. Mediastinum: Mediastinal contours are normal. Heart size is mildly enlarged. Bones and chest wall: No suspicious bony abnormalities. Soft tissues appear unremarkable. IMPRESSION: Cardiomegaly and mild pulmonary vascular congestion. COPD. Small left pleural effusion with left basilar atelectasis. No definite focal infiltrate. No pneumothorax. Dictated by: Shar Lincoln M.D. on 01/11/2025 at 17:57 Approved by: Shar Lincoln M.D. on 01/11/2025 at 17:58
== END ==
PROVIDERS: PCP Internal Medicine; Referring Provider Internal Medicine; Visit Provider Internal Medicine
DX: R91.8 Other nonspecific abnormal finding of lung field (principal); J44.9 Chronic obstructive pulmonary disease, unspecified; J90 Pleural effusion, not elsewhere classified; J98.11 Atelectasis; I51.7 Cardiomegaly
CPT/HCPCS: 71046

== ENCOUNTER → 2025-01-25 11:19 | Outpatient (CLI) | payer OTHER, SELFPAY ==
[2025-01-25 12:51] LABS: Prothrombin Time 54.6 SECONDS (9.4-12.5)
[2025-01-25 13:04] LABS: INR 5.0 (0.9-1.3)
== END ==
PROVIDERS: Family Medicine; PCP Internal Medicine; Referring Provider Internal Medicine; Visit Provider Internal Medicine
DX: I48.11 Longstanding persistent atrial fibrillation (principal); D68.59 Other primary thrombophilia; Z79.01 Long term (current) use of anticoagulants
CPT/HCPCS: 36415; 85610

== ENCOUNTER 2025-01-26 14:06 | Emergency (ER) | payer OTHER, SELFPAY ==
[2025-01-26 14:16] VITALS: BP 116/87; PULSE 109; RESP 20; TEMP 36.4; O2SAT 93; BMI 16.7
--- NOTE | 2025-01-26 14:22 | DI.RAD.S_ITS ---
PROCEDURE: XR CHEST 1V INDICATIONS: Shortness of breath TECHNIQUE: One view of the chest was acquired. COMPARISON: [facility], CR, XR CHEST 2V, 01/11/2025, 11:44. FINDINGS: Surgical changes and devices: None. Lungs and pleura: Increased appearance of bilateral pulmonary opacities most prominent and confluent in the left base. Mediastinum: Mediastinal contours appear normal. Heart size is normal. Bones and chest wall: No suspicious bony lesions. Overlying soft tissues appear unremarkable. IMPRESSION: Increased appearance of bilateral pulmonary opacities most significant the left base suggestive of pneumonia. Recommend interval follow-up to document resolution and exclude presence of underlying mass. Underlying areas of edema/atelectasis cannot be excluded. Dictated by: Estefania Rocha M.D. on 01/26/2025 at 15:18 Approved by: Estefania Rocha M.D. on 01/26/2025 at 15:19
[2025-01-26 14:48] LABS: Add Manual Diff / Slide Review NO; Hematocrit 28.3 % (41-53); Hemoglobin 9.6 g/dL (13.5-17.5); Lymphocytes Absolute Auto 500 /uL (1100-4500); Mean Corpuscular HGB Conc 33.8 % (30-36); Mean Corpuscular Hemoglobin 31.6 PG (26-34); Mean Corpuscular Volume 93.6 fL (80-100); Platelet Count 161 X10^3/uL (150-400)
[2025-01-26 14:54] LABS: INR 3.5 (0.9-1.3); Prothrombin Time 38.2 SECONDS (9.4-12.5)
--- NOTE | 2025-01-26 14:54 | EKG_ITS ---
[facility] [address] [place] [address] Test Date: 2025-01-26 Pat Name: Levi Bynum Department: 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
--- NOTE | 2025-01-26 14:55 | PC.NURSE ---
Code sepsis called upon arrival to ER.
[2025-01-26 15:00] LABS: Lactate (Lactic Acid) 0.8 mmol/L (0.7-2.1)
[2025-01-26 15:01] LABS: Alanine Aminotransferase 46 IU/L (<50); Albumin 3.1 g/dL (3.5-5.0); Albumin Globulin Ratio 1.1 (1.0-2.8); Alkaline Phosphatase 92 U/L (38-126); Blood Urea Nitrogen 103 mg/dL (9-20); Calcium 9.0 mg/dL (8.4-10.2); Carbon Dioxide 22 mmol/L (22-32); Chloride 111 mmol/L (98-107); Estimated Glomerular Filt Rate 26 mL/min (>60); Globulin 2.8 g/dL (1.7-4.1); Glucose 120 mg/dL (70-99); HEMOLYSIS < 15 (0-50); Potassium 4.3 mmol/L (3.4-5.1); Sodium 140 mmol/L (137-145); Total Protein 5.9 g/dL (6.3-8.2)
[2025-01-26 15:13] LABS: NT-proBNP (BNP-Adult 18+) 17100 pg/mL (<450); Troponin I 0.065 ng/mL (0.01-0.034)
--- NOTE | 2025-01-26 15:13 | ED_ITS ---
HPI - General Adult General Chief complaint: Shortness of Breath/Dyspnea Stated complaint: PC ref, COPD, cough w/blood, eyes, cardiac issue Time Seen by Provider: 01/26/25 14:29 Source: patient Mode of arrival: Ambulatory History of Present Illness HPI narrative: 79-year-old gentleman with a history of COPD, hemoptysis, mass of the left lung initially noted in July of 2023, cardiomyopathy, coronary artery disease, end- stage renal disease chronic atrial fibrillation for which he is anticoagulated presents complaining of a week of increased dyspnea and hemoptysis. No fevers or chills Related Data Home Medications ?Medication ?Instructions ?Recorded ?Confirmed cholecalciferol (vitamin D3) 50 50 mcg PO DAILY 01/26/25 mcg (2,000 unit) capsule calcitriol 0.25 mcg capsule 0.25 mcg PO Q OTHER DAY 01/26/25 furosemide 20 mg tablet 20 mg PO DAILY 04/02/2401/17 amlodipine 5 mg tablet 5 mg PO DAILY 10/26/2401/26 Previous Rx's ?Medication ?Instructions ?Recorded hydralazine 25 mg tablet See Rx Instructions .Route 1 02/27/23 .COMPLEX #454 tabs aspirin 81 mg tablet,delayed 81 mg PO DAILY #90 tabs 0 03/31/24 release warfarin 1 mg tablet See Rx Instructions .Route 0 06/16/24 .COMPLEX #240 tabs atorvastatin 20 mg tablet 20 mg PO BEDTIME #90 tabs metoprolol succinate 50 mg 50 mg PO DAILY #90 tabs tablet,extended release 24 hr levothyroxine 75 mcg tablet 75 mcg PO DAILY #90 tabs 1 02/27/24 fluticasone 500 mcg-salmeterol 50 1 inh inhalation BID #60 ea 12/31/24 mcg/dose blistr powdr for inhalation (Advair Diskus) isosorbide mononitrate 60 mg 60 mg PO DAILY #90 tabs 1 03/06/24 tablet,extended release 24 hr prednisone 20 mg tablet 40 mg (2 x 20 mg) PO DAILY # 60 tabs 01/11/25 amoxicillin 875 mg-potassium 1 tab PO BID #14 tabs 12/11 clavulanate 125 mg tablet doxycycline hyclate 100 mg capsule 100 mg PO BID #14 c aps 01/26/25 Allergies Allergy/AdvReac Type Severity Reaction Status Date / Time No Known Drug Allergies Allergy Verified 01/26/25 14:19 Review of Systems Review of Systems Narrative: Pertinent positive and negative findings as per HPI Patient History Medical History (Updated 01/26/25 @ 19:44 by Rosana Gar MD) Mass of left lung (~07/2023) Hemoptysis Malnutrition COPD (chronic obstructive pulmonary disease) Anticoagulated on warfarin Stroke (~2015) Fractures Measles Chicken pox Hearing loss Alcoholism Cardiomyopathy Atherosclerotic heart disease of [place] coronary artery without angina pectoris Chronic renal failure, stage 4 (severe) Personal history of stroke with current residual effects (~2015) Depression Atrial fibrillation (~2015) AAA (abdominal aortic aneurysm) (~2015) Essential hypertension (~2010) Acquired hypothyroidism Surgical History Status post percutaneous abdominal aortic aneurysm (AAA) repair (~10/2018) Anesthesia S/P tonsillectomy (~1947) S/P vasectomy (~1980) Family History Brother Myocardial infarction Father Malnutrition Mother History of heart disease Sister History of heart artery stent Social History Smoking Status: Current every day smoker Smoking Status: Current every day smoker Exam Initial Vital Signs Initial Vital Signs: Vital Signs Temperature 97.5 F L 01/26/25 14:16 Pulse Rate 109 H 01/26/25 14:16 Respiratory Rate 20 01/26/25 14:16 Blood Pressure 116/87 01/26/25 14:16 Pulse Oximetry 93 01/26/25 14:16 Oxygen Delivery Method Room Air 01/26/25 14:16 General: Frail thin, chronically ill-appearing HEENT: Moist mucous membranes, normal sclera with reactive pupils, Respiratory: Lungs are clear to auscultation, no wheezing no rales no rhonchi. Full and symmetrical air movement Cardiac: Regular rate and rhythm no murmurs no bruits Abdomen: Soft, nontender, no rebound or guarding, no flank pain Skin: Warm and dry, no rashes Neurologic: Grossly neurologically intact with no obvious asymmetries or abnormalities Extremities: No trauma, well perfused Psych: Cooperative, appropriate insight and affect Course Orders Ordered: ED Orders 01/26/25 14:22 XR chest 1V Stat EKG-12 Lead Stat Measure peak expiratory flow STAT RT Consult Eval and Treat STAT 01/26/25 14:30 Complete Blood Count AUTO DIFF Stat Comprehensive Metabolic Panel Stat Lactate (Lactic Acid) Stat NT-proBNP (BNP-Adult 18+) Stat Procalcitonin Stat Prothrombin Time INR Stat Troponin I Stat 01/26/25 14:37 Blood Culture Stat 01/26/25 17:09 CT chest wo con Stat 01/26/25 17:52 Trop I [Troponin I] Stat Discontinued Medications Piperacillin Sod/Tazobactam (Sod 4.5 gm/ Sodium Chloride) 100 mls @ 200 mls/hr IV STAT ONE Stop: 01/26/25 15:16 Last Infusion: 01/26/25 16:32 Dose: Infused Documented By: Admin: 01/26/25 15:48 Dose: 200 mls/hr Documented By: RUFINA Vancomycin HCl (Vancomycin) 1,000 mg in 200 mls @ 200 mls/hr IV NOW ONE Stop: 01/26/25 16:25 Last Infusion: 01/26/25 17:57 Dose: Infused Documented By: Admin: 01/26/25 16:32 Dose: 200 mls/hr Documented By: RUFINA Furosemide 80 mg/ Sodium (Chloride) 58 mls @ 116 mls/hr IV NOW ONE Stop: 01/26/25 17:10 Last Infusion: 01/26/25 18:36 Dose: Infused Documented By: Admin: 01/26/25 17:56 Dose: 116 mls/hr Documented By: RUFINA Vancomycin HCl (Vancomycin Per Pharmacy) 1 request MISC STAT ONE Stop: 01/26/25 15:18 Last Admin: 01/26/25 15:49 Dose: 1 request Documented By: RUFINA Vital Signs Vital signs: Vital Signs - 8 hr 01/26/25 14:16 01/26/25 16:13 01/26/25 17:00 Temperature 97.5 F L Pulse Rate 109 H 104 H 107 H Respiratory Rate 20 22 20 Blood Pressure 116/87 133/81 139/77 Pulse Oximetry 93 96 94 Oxygen Delivery Method Room Air Room Air Room Air Oxygen Flow Rate 01/26/25 18:00 Temperature Pulse Rate 101 H Respiratory Rate 18 Blood Pressure 140/87 Pulse Oximetry 97 Oxygen Delivery Method Nasal Cannula Oxygen Flow Rate 2 Medical Decision Making Lab Data 01/26/25 14:30 01/26/25 14:30 Labs: Lab Results 01/26/25 01/26/25 Range/Units 14:30 17:52 WBC 16.3 H (4.5-11.0) X10^3/uL RBC 3.03 L (4.5-5.9) X10^6/uL Hgb 9.6 L (13.5-17.5) g/dL Hct 28.3 L (41-53) % MCV 93.6 (80-100) fL MCH 31.6 (26-34) PG MCHC 33.8 (30-36) % RDW 16.0 H (11.6-14.8) % Plt Count 161 (150-400) X10^3/uL Neut % (Auto) 91.0 H (50-75) % Lymph % (Auto) 3.3 L (25-40) % [place] % (Auto) 5.1 (3-14) % Eos % (Auto) 0.3 L (2-4) % Baso % (Auto) 0.3 (0-2) % Neut # (Auto) 96326 H (9757-9426) /uL Lymph # (Auto) 500 L (5313-8873) /uL [place] # (Auto) 800 (0-900) /uL Eos # (Auto) 0 (0-450) /uL Baso # (Auto) 0 (0-100) /uL PT 38.2 H D (9.4-12.5) SECONDS INR 3.5 H (0.9-1.3) Sodium 140 (137-145) mmol/L Potassium 4.3 (3.4-5.1) mmol/L Chloride 111 H (98-107) mmol/L Carbon Dioxide 22 (22-32) mmol/L BUN 103 H (9-20) mg/dL Creatinine 2.44 H (0.66-1.25) mg/dL Estimated GFR 26 L (>60) mL/min BUN/Creatinine Ratio 42.2 H (6-22) Glucose 120 H (70-99) mg/dL Lactate 0.8 (0.7-2.1) mmol/L Calcium 9.0 (8.4-10.2) mg/dL Total Bilirubin 0.4 (0.2-1.3) mg/dL AST 49 (17-59) IU/L ALT 46 (<50) IU/L Alkaline Phosphatase 92 (38-126) U/L Troponin I 0.065 H 0.058 H (0.01-0.034) ng/mL NT-Pro-B Natriuret Pep 29706 H (<450) pg/mL Total Protein 5.9 L (6.3-8.2) g/dL Albumin 3.1 L (3.5-5.0) g/dL Globulin 2.8 (1.7-4.1) g/dL Albumin/Globulin Ratio 1.1 (1.0-2.8) Procalcitonin 0.203 (<0.5) ng/mL Imaging Data CT scan - chest: Radiologist's Impression: PROCEDURE: CT CHEST WO CON INDICATIONS: hemoptosis TECHNIQUE: Noncontrast 5 mm thick sections acquired from the pulmonary apices to the posterior costophrenic angles. 1 mm lung window, 5 mm thick coronal and sagittal and 7 mm axial MIP reformats were then acquired. For radiation dose reduction, the following was used: automated exposure control, adjustment of mA and/or kV according to patient size. COMPARISON: [facility], CR, XR CHEST 2V, 01/11/2025, 11:44. [facility], CR, XR CHEST 1V, 01/26/2025, 14:47. [facility], CT, CT CHEST WO CON, 07/31/2023, 15:12. FINDINGS: Image quality: Diagnostic. Lower Neck: No enlarged lymph nodes. Thyroid: No thyroid nodules which require sonographic follow up, per consensus guidelines. Axillae: No enlarged lymph nodes. Chest Wall: Bilateral gynecomastia.. Bones: Unremarkable. Lungs and Pleura: Small left and trace right pleural effusions. Left lower lobe consolidative opacity. Previously seen left lower lobe nodule appears to have decreased in size, now measuring 1.6 x 1.4 cm, compared to 2.5 x 2.[address] from 07/31/2023. A new nodular lesion is seen in the anterior left lower lobe (3/166) measuring 2.4 x 2.3 cm. Advanced destructive emphysema. Heart: Heart size is enlarged. No pericardial effusion. Severe coronary artery calcifications. Thoracic Vessels: The aorta and pulmonary arteries demonstrate normal size. Mediastinum and [place]: No enlarged lymph nodes. Esophagus: No wall thickening. No hiatal hernia. Upper Abdomen: Abdominal aortic stent graft is partially included. Hypoattenuating a patent lesions do not appear significantly changed. Numerous bilateral renal cysts are partially included, some of which are hyperdense. IMPRESSION: 1. Left lower lobe consolidative opacity is suspicious for pneumonia or aspiration. Radiographic follow-up to resolution is recommended to exclude underlying malignancy. 2. Multiple left lower lobe pulmonary nodules. Larger nodules on the CT dated 08/05/2023 appear to have decreased in size although a new 2.4 nodule is seen more anteriorly. 3. Small left and trace right pleural effusions. 4. Severe emphysema. 5. Cardiomegaly. Severe coronary artery calcifications. Approved by: Claude Rene M.D. on 01/26/2025 at 18:08 MDM Narrative Medical decision making narrative: CC: Hemoptysis Complicating co-morbidities: COPD, hypertension, previous episode of hemoptysis, lung mass on x-ray over a year ago that apparently had resolved on repeat x-ray, heart failure, coronary artery disease, hypothyroidism Data collected from: patient, Social determinants of health that may influence the patients condition: Increasing mobility and health issues with both patient and his Medical records reviewed: Recent primary care notes reviewed Differential considered: Pneumonia, mass, over anticoagulated Exam documented above, pertinent findings include: Frail, chronically ill-appearing slight cough, lungs with slight rhonchi more on the right than the left and scattered wheeze. Right-sided subconjunctival hemorrhage Lab Test results independently reviewed as above. Pertinent findings: INR is 3.5 CBC shows leukocytosis at 16.3 with 91% neutrophils, hemoglobin has been steadily decreasing over the last 6 months a month ago was 10.7 is currently 9.6 Chemistries show his chronic kidney disease actually slightly improved. No electrolyte abnormalities Liver studies are reassuring [place]roponin [place] slightly [place] [address] which is almost double recently checked numbers Lactic acid is unremarkable Independently reviewed EKG: Chronic atrial fibrillation rate of 103, nonspecific STT wave changes. No acute ischemia noted Imaging studies independently reviewed: Chest x-ray shows increased appearance of bilateral pulmonary opacities more in the left suggestive of pneumonia Treatments: Vancomycin, piperacillin, 80 mg of furosemide Discussion: 79-year-old gentleman who presents with cough and hemoptysis. CT scan suggests left lower lobe pneumonia without neoplastic process. He does have quite a bit of emphysematous changes. INR has been somewhat elevated yesterday today is 3.5 in his likely contributing to the noted hemoptysis. With coughing yesterday he did develop a small right subconjunctival hemorrhage There was no evidence of sepsis, blood pressure is stable, he is not requiring oxygen, we did note that his BNP was significantly higher than it has been previously and his imaging studies indicate significant cardiomyopathy. My recommendation was for hospitalization however, with shared decision-making the patient would very much like to go home. We will recommend Augmentin and doxycycline for antibiotic coverage for his pneumonia. Continuing all additional medications including his metoprolol dose once he gets home this evening. We will ask him to increase his furosemide from 20 mg daily to 40 mg daily for the next 7 days. He needs an ER outpatient follow up appointment early next week with his primary care physician and I carefully discussed reasons to return to the emergency department and stressed that he would be welcomed at any time had questions regarding hospice you are the end of our visit. I suggested that we get through this current acute episode and that the discussion of hospice he brought up with your primary care physician on follow up next week. They are safely discharge Discharge Plan Departure Patient Disposition: Home Clinical Impression: Left lower lobe pneumonia, Congestive heart failure, COPD (chronic obstructive pulmonary disease), Hemoptysis, Elevated INR, Subconjunctival hemorrhage Instructions: DI for Pneumonia -- Adult Activity Restrictions/Additional Instructions: Thank you for coming in today and being so patient with our very busy department Your lab work shows that you do have an infection but there is no evidence of sepsis Your chest x-ray and your CT scan suggests that you are developing a left lower lobe pneumonia as the source of your infection. You were started on IV antibiotics in the emergency department and I have sent prescriptions for Augmentin and doxycycline to be taken simultaneously over the next 7 days Your INR was at 3.5. This may explain the coughing up blood as well as the bleeding under the surface of your eye. I would recommend holding your Coumadin tonight and restarting tomorrow. You will need another INR in approximately 3 days. The antibiotics can cause the numbers to shift significantly You are showing worsening signs of congestive heart failure. You typically take 20 mg of furosemide to help with fluid retention in your lungs. I am going to suggest that you double this to 40 mg for the next 7 days You need to call and schedule an appointment with your primary care physician or 1 of their partners for an ER follow up on Friday or Friday of next week You had questions regarding hospice, this is a discussion that would be most appropriate after your pneumonia has improved and to be discussed with your primary care physician If you find that you are getting worse or develop any new symptoms, please feel free to return to the emergency department for further evaluation. Prescriptions: New amoxicillin-pot clavulanate 875-125 mg tablet 1 tab PO BID Qty: 14 0RF doxycycline hyclate 100 mg capsule 100 mg PO BID Qty: 14 0RF No Action hydralazine 25 mg tablet See Rx Instructions .ROUTE .COMPLEX Qty: 454 3RF Rx Instructions: 2 tabs in am, 2 tabs midday, 1 tab at bedtime aspirin 81 mg tablet,delayed release (DR/EC) 81 mg PO DAILY Qty: 90 3RF warfarin 1 mg tablet See Rx Instructions .ROUTE .COMPLEX Qty: 240 3RF Protocol: Dose Management Condition: Friday Dose/Route: 0 mg Instruction: 0 tablets Condition: Friday Dose/Route: 0 mg Instruction: 0 tablets Condition: Friday Dose/Route: Hold Instruction: No doses Condition: Friday Dose/Route: Hold Instruction: No doses Condition: Dose/Route: Hold Instruction: No doses Condition: Friday Dose/Route: 0 mg Instruction: 0 tablets Condition: Friday Dose/Route: 0 mg Instruction: 0 tablets Protocol Text: Adjustment Start Date: Friday01/25/25 INR Value: 5.0 INR Date: 01/25/25 Recheck Date: 01/28/25 Dose Instruction: TAKE 1 TAB BY MOUTH ON FRIDAY AND FRIDAY AND 2 TABS THE OTHER 5 DAYSOR DIRECTED Rx Instructions: Take 2 tablets (2 mg total) daily; or as directed. atorvastatin 20 mg tablet 20 mg PO BEDTIME Qty: 90 3RF metoprolol succinate 50 mg tablet extended release 24 hr 50 mg PO DAILY Qty: 90 3RF levothyroxine 75 mcg tablet 75 mcg PO DAILY Qty: 90 3RF fluticasone propion-salmeterol [Advair Diskus] 500-50 mcg/dose blister with device 1 inh inhalation BID Qty: 60 3RF isosorbide mononitrate 60 mg tablet extended release 24 hr 60 mg PO DAILY Qty: 90 3RF cholecalciferol (vitamin D3) 50 mcg (2,000 unit) capsule 50 mcg PO DAILY furosemide 20 mg tablet 20 mg PO DAILY calcitriol 0.25 mcg capsule 0.25 mcg PO Q OTHER DAY Patient Comments: [NO ORIGINAL SIG] amlodipine 5 mg tablet 5 mg PO DAILY prednisone 20 mg tablet 40 mg PO DAILY Qty: 60 0RF Rx Instructions: take 2 tabs daily or as directed Referrals: Cheo Batista MD [Primary Care Provider, Internal Medicine] Stand Alone Forms: Patient Portal/API
[2025-01-26] MEDS: PIPERACILLIN/TAZO 4.5 GM in SODIUM CHLORIDE 0.9% 100 ML IV (15:48)
[2025-01-26] MEDS: VANCOMYCIN PER PHARMACY 1 REQUEST MISC (15:49)
[2025-01-26 15:50] LABS: Procalcitonin 0.203 ng/mL (<0.5)
[2025-01-26 16:13] VITALS: BP 133/81; PULSE 104; RESP 22; O2SAT 96
[2025-01-26] MEDS: VANCOMYCIN 1,000 MG/200 ML PIGGYBACK 200 MG IV (16:32)
[2025-01-26 17:00] VITALS: BP 139/77; PULSE 107; RESP 20; O2SAT 94
--- NOTE | 2025-01-26 17:09 | DI.CT.S_ITS ---
PROCEDURE: CT CHEST WO CON INDICATIONS: hemoptosis TECHNIQUE: Noncontrast 5 mm thick sections acquired from the pulmonary apices to the posterior costophrenic angles. 1 mm lung window, 5 mm thick coronal and sagittal and 7 mm axial MIP reformats were then acquired. For radiation dose reduction, the following was used: automated exposure control, adjustment of mA and/or kV according to patient size. COMPARISON: [facility], CR, XR CHEST 2V, 01/11/2025, 11:44. [facility], CR, XR CHEST 1V, 01/26/2025, 14:47. [facility], CT, CT CHEST WO CON, 07/31/2023, 15:12. FINDINGS: Image quality: Diagnostic. Lower Neck: No enlarged lymph nodes. Thyroid: No thyroid nodules which require sonographic follow up, per consensus guidelines. Axillae: No enlarged lymph nodes. Chest Wall: Bilateral gynecomastia.. Bones: Unremarkable. Lungs and Pleura: Small left and trace right pleural effusions. Left lower lobe consolidative opacity. Previously seen left lower lobe nodule appears to have decreased in size, now measuring 1.6 x 1.4 cm, compared to 2.5 x 2.[address] from 07/31/2023. A new nodular lesion is seen in the anterior left lower lobe (3/166) measuring 2.4 x 2.3 cm. Advanced destructive emphysema. Heart: Heart size is enlarged. No pericardial effusion. Severe coronary artery calcifications. Thoracic Vessels: The aorta and pulmonary arteries demonstrate normal size. Mediastinum and [place]: No enlarged lymph nodes. Esophagus: No wall thickening. No hiatal hernia. Upper Abdomen: Abdominal aortic stent graft is partially included. Hypoattenuating a patent lesions do not appear significantly changed. Numerous bilateral renal cysts are partially included, some of which are hyperdense. IMPRESSION: 1. Left lower lobe consolidative opacity is suspicious for pneumonia or aspiration. Radiographic follow-up to resolution is recommended to exclude underlying malignancy. 2. Multiple left lower lobe pulmonary nodules. Larger nodules on the CT dated 08/05/2023 appear to have decreased in size although a new 2.4 nodule is seen more anteriorly. 3. Small left and trace right pleural effusions. 4. Severe emphysema. 5. Cardiomegaly. Severe coronary artery calcifications. Approved by: Claude Rene M.D. on 01/26/2025 at 18:08
[2025-01-26] MEDS: FUROSEMIDE 80 MG in SODIUM CHLORIDE 0.9% 50 ML 116 MG IV (17:56)
[2025-01-26 18:00] VITALS: BP 140/87; PULSE 101; RESP 18; O2SAT 97
[2025-01-26 18:29] LABS: Troponin I 0.058 ng/mL (0.01-0.034)
[2025-01-26 19:30] VITALS: BP 158/72; PULSE 120; RESP 18; O2SAT 95
== END 2025-01-26 20:06 | disposition home or self-care (01) ==
PROVIDERS: Emergency Provider Emergency Medicine; PCP Internal Medicine
DX: J18.9 Pneumonia, unspecified organism (principal); R04.2 Hemoptysis; I50.9 Heart failure, unspecified; J44.0 Chronic obstructive pulmonary disease with (acute) lower respiratory infection; H11.31 Conjunctival hemorrhage, right eye; F17.200 Nicotine dependence, unspecified, uncomplicated
CPT/HCPCS: 36415; 71045; 71250; 80053; 83605; 83880; 84145; 84484; 85025; 85610; 87040; 93005; 96365; 96367; 99284; J1938; J2543; J3375; J7050